=== PATIENT | female | born 1955 | race Caucasian/White ===

== ENCOUNTER → 2022-12-10 12:11 | Outpatient (CLI) | payer OTHER, SELFPAY ==
[2022-12-10 12:38] LABS: Add Manual Diff / Slide Review NO; Basophils Absolute Auto 0 /uL (0-100); Basophils Percent Auto 0.5 % (0-2); Eosinophils Absolute Auto 100 /uL (0-450); Eosinophils Percent Auto 1.8 % (2-4); Hematocrit 42.9 % (36-46); Hemoglobin 14.4 g/dL (12.0-16.0); Lymphocytes Absolute Auto 2700 /uL (1100-4500); Lymphocytes Percent Auto 37.2 % (25-40); Mean Corpuscular HGB Conc 33.6 % (30-36); Mean Corpuscular Hemoglobin 31.3 PG (26-34); Mean Corpuscular Volume 93.1 fL (80-100); Monocytes Absolute Auto 600 /uL (0-900); Monocytes Percent Auto 7.9 % (3-14); Neutrophils Absolute Auto 3900 /uL (1500-7000); Neutrophils Percent Auto 52.6 % (50-75); Platelet Count 261 X10^3/uL (150-400); Red Blood Cell Count 4.61 X10^6/uL (4.0-5.2); Red Cell Distribution Width 13.3 % (11.6-14.8); White Blood Cell Count 7.3 X10^3/uL (4.5-11.0)
[2022-12-10 12:41] LABS: Appearance Urine UA CLEAR; Bilirubin Urine UA NEGATIVE (NEGATIVE); Color Urine UA YELLOW; Glucose Urine UA NEGATIVE (Negative); Ketones Urine UA NEGATIVE (NEGATIVE); Leukocyte Esterase Urine UA NEGATIVE (NEGATIVE); Nitrite Urine UA NEGATIVE (Negative); Occult Blood Urine UA NEGATIVE (Negative); Protein Urine UA NEGATIVE (Negative); Specific Gravity Urine UA <=1.005 (1.000-1.035); Urobilinogen Urine UA 0.2 E.U./dL (0.2); pH Urine UA 6.5 (4.5-8.0)
[2022-12-10 12:48] LABS: Bacteria Urine Occasional (0-1); Culture Indicated Urine Specimen Cultured; RBC Urine 0-1/HPF (0-5/HPF); Squamous Epithelial Cell Urine 0-1 /HPF (0-5/HPF); WBC Urine None Seen (0-5/HPF)
[2022-12-10 12:50] LABS: Blood Urea Nitrogen 15 mg/dL (7-17); Calcium 10.1 mg/dL (8.4-10.2); Carbon Dioxide 33 mmol/L (22-32); Chloride 102 mmol/L (98-107); Estimated Glomerular Filt Rate > 60 mL/min (>60); Glucose 92 mg/dL (80-110); HEMOLYSIS < 15 (0-50); Potassium 4.3 mmol/L (3.4-5.1); Sodium 140 mmol/L (137-145)
[2022-12-11 07:47] LABS: Labcorp Hemoglobin (Hb) A1c 6.4 % (4.8-5.6)
== END ==
PROVIDERS: PCP Registered Nurse; Referring Provider Orthopaedic Surgery; Visit Provider Orthopaedic Surgery
DX: Z01.818 Encounter for other preprocedural examination (principal); Z01.812 Encounter for preprocedural laboratory examination; R73.9 Hyperglycemia, unspecified; N39.0 Urinary tract infection, site not specified
CPT/HCPCS: 36415; 80048; 81001; 83036; 85025; 87086; 93005

== ENCOUNTER 2023-01-24 08:28 | Day surgery (SDC) | payer OTHER, SELFPAY ==
[2023-01-16 08:49] VITALS: BMI 37.8
[2023-01-24] VITALS (9 sets, daily range): BP systolic 91–137; BP diastolic 52–79; PULSE 61–81; RESP 10–18; TEMP 35.9–36.6; O2SAT 93–98; BMI 37.8
--- NOTE | 2023-01-24 06:00 | DI.RAD.S_ITS ---
PROCEDURE: XR PELVIS 1-2V INDICATIONS: inner op pelvis. TECHNIQUE: Intra-operative view of the pelvis and hip acquired. COMPARISON: None. FINDINGS: Bones: Intraoperative devices prior to placement of arthroplasty trial prostheses are in expected positions. No fractures or suspicious bony lesions. Soft tissues: Overlying surgical retractors are present, along with other intraoperative changes. IMPRESSION: Expected arthroplasty trial prosthesis appearance. Dictated by: Brian Bailey M.D. on 01/24/2023 at 13:53 Approved by: Brian Bailey M.D. on 01/24/2023 at 13:53
[2023-01-24] MEDS: MELOXICAM 7.5 MG TABLET 15 MG PO (08:54)
[2023-01-24] MEDS: ACETAMINOPHEN 325 MG TABLET 975 MG PO (08:55)
[2023-01-24] MEDS: VANCOMYCIN 1,000 MG/200 ML PIGGYBACK 200 MG IV (09:45)
--- NOTE | 2023-01-24 10:08 | PM.PREOP ---
Pre-operative Note Interval Note History & Physical reviewed/Exam performed by Physician: Yes Changes to H&P: No
--- NOTE | 2023-01-24 10:10 | PM.OP.1 ---
Operative Date/Time/Diagnoses Date of procedure: 01/24/23 Time of procedure: 10:23 Pre-op diagnosis: Severe right hip OA Post-op diagnosis: same Procedure & Clinicians Procedure: Right total hip arthroplasty posterior approach Same procedure as scheduled: Yes Indications: The patient has had progressively worsening right hip pain with radiographic changes consistent with arthritis. Non-operative management has failed and the patient has requested total hip replacement. The risks, benefits and alternatives to surgery were discussed with the patient prior to proceeding. Risks discussed included, but were not limited to, failure to relieve pain, leg length discrepancy, dislocation, stiffness, infection, nerve damage, deep venous thrombosis, pulmonary embolism, stroke, coma, heart attack, permanent paralysis and , as well as the potential need for eventual revision of the prosthetic. Surgeon: Ibis Norman Engine Manager: Michael Paulino Click Yes if Unassisted: Yes Anesthesia Type: General Operative Notes Findings: Severe right hip osteoarthritis, good stability, adequate bone Closure Type: primary Specimen(s): none sent Prosthetic devices, grafts, tissues, transplants, or devices: Norman and Nephew size 50 R3 cup, neutral poly liner, size 9 synergy standard offset, 32 by +0 Oxinium head, one 6.5 mm screw Estimated Blood Loss (mL): 250 Blood products transfused: none Procedure in detail: The patient was seen in the pre-operative area, where the patient identified the right hip as the operative site and this was marked with my initials. The patient received pre-operative antibiotics and was taken to the operating room and placed on the operative table in the left lateral decubitus position after satisfactory anesthesia. A rough and truing machine operator out was performed. The right leg was prepared from the ankle to the iliac crest with ChloroPrep in the usual fashion and draped through sterile drapes. A PA was used throughout the procedure and was critically important for positioning the leg intraoperatively, retracting and allowing adequate hemostasis. The hip was approached through an approximately 20 cm incision centered over the greater trochanter and curving gently posteriorly as it went proximally. This was carried sharply to the fascia nely, which was divided and retracted with a self retaining retractor. The trochanteric bursa was excised with care being taken to avoid the sciatic nerve, which was identified and protected throughout the case. The short external rotators were incised and the capsulomuscular flap was raised and tagged for later repair. The hip was dislocated, and a femoral neck osteotomy performed approximately 15 mm above the lesser trochanter. Retractors were placed around the femur. The canal was opened with a box cutting osteotome, followed by a T handled reamer and a lateralizing reamer. The chili pepper broach was then used, followed by sequential broaching until there was good stability of the broach in the femur. Retractors were placed to expose the acetabulum. The labrum and central soft tissues were removed. Reaming was performed initially going up in 2 mm increments, then 1 mm increments until good bite was obtained with an odd sized reamer. The cup 1 mm larger than the last reamer was then inserted using the appropriate anteversion guides. It was further stabilized with a single screw. A trial neutral liner was placed. The broach was placed in the canal. A trial head and neck were then placed and the hip relocated and checked for leg length and stability. An intraoperative film confirmed the component position and no evidence of fracture. The patient was stable in the position of sleep, of squatting, and could be put through a range of motion with 45 degrees internal rotation without dislocation. At 90 degrees flexion, internal rotation to 70? was possible before dislocation. This was felt to be satisfactory and the appropriate components were opened, and the trials were removed. The acetabular liner was impacted into position. The final stem was then impacted into the prepared femoral canal. A brief Betadine soak was performed while trialing with head options. The hip was meticulously irrigated with normal saline. Finally the femoral head was impacted onto the stem. The acetabulum was cleared of all material and the hip relocated one final time. The capsulomuscular flap was then repaired to the greater trochanter though an awl hole using the tag sutures. The short external rotators were repaired with a nonabsorbable suture. A deep drain was placed and brought out anteriorly. The fascia nely was closed with Vicryl. The subcutaneous layer was closed with barbed sutures and SteriStrips. An Aquacel Ag dressing was applied and the patient was taken to recovery having tolerated the procedure well. Complications: none Post-operative Condition: stable Disposition: Acute Care Plan for aftercare: The patient will be maintained on a standard total hip replacement protocol with weight bearing as tolerated and posterior hip precautions. The patient will receive Aspirin and sequential compression devices for DVT prophylaxis. The patient will be discharged home when safe for the home environment.
[2023-01-24] MEDS: CEFAZOLIN 2 GM/100 ML PREMIX 100 ML IV ×2 (10:45→19:47)
--- NOTE | 2023-01-24 11:13 | SUR.OPER ---
Lateral on padded OR bed. Gel axillary roll. Arms secured on padded armboard with pillow supporting top arm. Padded hip positioner braces x4 - anterior and posterior chest and pelvis. Additional gel pad used anterior pelvis. Gel pad under bottom leg from knee to foot and secured with tape over sheet.
[2023-01-24] MEDS: BUPIVACAINE 0.25% (PF) 60 ML, EPINEPHrine 0.3 MG INJ (11:22)
[2023-01-24] MEDS: TRANEXAMIC ACID 1,000 MG VIAL 2000 MG INJ ×2 (11:30→12:46)
[2023-01-24] MEDS: BUPIVACAINE LIPOSOME 266 MG/20 ML VIAL INJ (12:07)
--- NOTE | 2023-01-24 13:30 | DI.RAD.S_ITS ---
PROCEDURE: XR HIP W PEL IF DONE RT 2V INDICATIONS: POST OP RT HIP TECHNIQUE: 2 view(s) of the hip acquired. COMPARISON: None. FINDINGS: Bones: Patient is status post right hip arthroplasty, with hardware components in expected positions. The hip joint appears congruent. The visualized bony structures appear intact. Soft tissues: Overlying postoperative changes are noted. No suspicious soft tissue densities. IMPRESSION: Expected postoperative appearance of a right hip arthroplasty. Dictated by: Brian Bailey M.D. on 01/24/2023 at 13:54 Approved by: Brian Bailey M.D. on 01/24/2023 at 13:55
--- NOTE | 2023-01-24 15:15 | PT.IIE ---
Current Diagnoses Unilateral primary osteoarthritis, right hip (01/24/23) Surgery Performed Operation Date: 01/24/23 10:45 Actual Procedures p Total Hip Arthroplasty(Right) - Ibis Norman MD Surgical History (Last Updated 01/16/23 @ 09:13 by Viridiana May, RN) History of carpal tunnel surgery of right wrist Hx of arthroscopy of left knee Medical History (Last Updated 01/16/23 @ 09:13 by Viridiana May, RN) Baez's palsy Hearing loss, left HTN (hypertension) Left acoustic neuroma (~2002) Nasal fracture Osteoarthritis Pre-diabetes Physical Therapy Inpatient Evaluation/Re-Eval M1 PT/OT-IP Prior Functional Status Start: 01/24/23 16:08 Freq: NEEDED Status: Active Protocol: Document 01/24/23 15:15 AB (Rec: 01/24/23 16:17 AB [id number]) Medical Review Prior Functional Status Medical History Reviewed Yes Communication able to make needs known Mobility and Gait pt stated that she is modified independent with all mobilities and ambulation using her SPC/walking stick Social History Household Members spouse Living Arrangements House Number of Floors (Floors) One Floor Number of Stairs To Enter/Railing? 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 [employer] M2 PT-IP Current Condition Start: 01/24/23 16:08 Freq: NEEDED Status: Active Protocol: Document 01/24/23 15:15 AB (Rec: 01/24/23 16:17 AB [id number]) Physical Therapy Current Condition Current Condition Evaluation Date 01/24/23 Treatment Diagnosis s/p R ZAK posterior approach; difficulty in walking Onset Date 01/24/23 M3 PT-IP Subjective Start: 01/24/23 16:08 Freq: NEEDED Status: Active Protocol: Document 01/24/23 15:15 AB (Rec: 01/24/23 16:17 AB [id number]) Subjective Physical Therapy Visit Type Type Initial Evaluation Visit Start Time 15:15 Visit Stop Time 15:55 Total Visit Minutes 40 Number of HOME CARE RN Visits 0 Physical Therapy Visit Comments Patient Comments agreeable to do PT Therapy Pain Assessment Pain When Pain Assessed At Rest Pain Present Pain Present Pain Reported Location Right Hip Intensity 5 Scale Used Numeric (0 - 10) Pain Management Techniques Apply Cold,Distraction, Modification of Treatment,Re- positioning M4 PT-IP Mobility and Gait Start: 01/24/23 16:08 Freq: NEEDED Status: Active Protocol: Document 01/24/23 15:15 AB (Rec: 01/24/23 16:17 AB [email or web address]) PT-Bed Mobility Assessment Supine to Sit Supine to Sit Standby Assistance Sit to Supine Sit to Supine Standby Assistance PT-Transfer Assessment Sit to and From Stand Sit to and from Stand Minimal Assistance,1 Person Assistance,Use of Upper Extremities Equipment Transfer Assistive Device Gait Belt,Front Wheeled Walker Orthotic/Prosthetic Devices or Brace: No Comments Mobility Comments educated pt regarding posterior hip precautions. BP in supine: 120/73. pt completed supine to sit towards the L SBA and cues for hip precautions. able to sit on EOB SBA. completed sit to stand min A and cues for hip precautions and pt ambulated in room using fWW min A ~ 40 ft. presents with unsteady antalgic gait. pt requested to go back to bed. completed sit to supine SBA. positioned in bed. call light and table placed within reach. spouse came in to visit pt. caregiver training set up for tomorrow at 10 am. Gait Assessment Gait Gait Assistance Required: Minimum Assistance Distance (Feet) 40 Able to Maintain Weight Bearing Status Yes During Gait Assistive Devices Assistive Device Gait Belt,Front Wheeled Walker Orthotic/Prosthetic Devices or Brace: No Gait Deviations General Gait Pattern Antalgic,Decreased Stride Length,Decreased Feet Clearance Factors Limiting Gait Function Factors Limiting Gait Function Decreased Activity Tolerance, Decreased Strength,Limited Range of Motion,Pain,Poor Balance,Poor Safety Awareness PT-Balance Assessment Sitting Balance and Reactions Static Sitting Balance Ability Normal Dynamic Sitting Balance Ability Good Standing Balance and Reactions Static Standing Balance Ability Fair Dynamic Standing Balance Ability Fair Device Used FWW M5 PT-IP Objective Assessments Start: 01/24/23 16:08 Freq: NEEDED Status: Active Protocol: Document 01/24/23 15:15 AB (Rec: 01/24/23 16:17 AB [id number]) Orientation Orientation/Cognition Level of Alertness Alert Orientation Name,Place,Situation Language Function Ability No Deficits Noted Safety Awareness Decreased Safety Awareness Memory Description Short Term Impaired Gross Range of Motion Lower Extremity ROM Assessment Within Functional Limits Strength Lower Extremity Strength Assessment Right Impaired Hip 3/5 Knee 4-/5 Coordination Assessment Gross Coordination Gross Coordination WNL Sensation Assessment Sensation Gross Sensation WNL Muscle Tone Muscle Tone WNL Yes M6 PT-IP Treatment Start: 01/24/23 16:08 Freq: NEEDED Status: Active Protocol: Document 01/24/23 15:15 AB (Rec: 01/24/23 16:17 AB [id number]) Physical Therapy Treatment Education Education Provided Precautions,Weight Bearing Status,Post-Op Packet,Safety M7 PT-IP Assessment and Plan Start: 01/24/23 16:08 Freq: NEEDED Status: Active Protocol: Document 01/24/23 15:15 AB (Rec: 01/24/23 16:17 AB [email or web address]) PT Summary Assessment and Plan Potential Rehabilitation Potential Fair Status of Condition at Evaluation Stable Summary Impairments Pain,ROM,Strength,Balance, Coordination,Sensation,Tone, Cognition,Bed Mobility, Transfers,Gait,Activity Tolerance Assessment Summary Pt s/p R ZAK posterior approach POD 0. pt requiring min A with transfers and ambulation using FWW. caregiver training set up for tomorrow at 10 am. pt will likely progress during hospital stay. pt stated that she is set up for outpt PT. will continue to assess progress. Goals Bed Mobility Goal Independent Transfer Goal Independent,Front Wheeled Walker Gait Goal Independent,Front Wheel Walker Gait Distance 200 Other Goals up/down 2 steps using SPC/VERIFICATION REP CGA Days to Meet Goals 5 Frequency of Treatment Frequency Of Treatment Twice a Day Treatment Plan Physical Therapy Treatment Plan Bed Mobility Training,Transfer Training,Gait Training, Therapeutic Exercise,Balance Retraining,Post Op Education, Discharge Planning,Hot or Cold Pack,Neuromuscular Re-ed, Coordination Retraining,Manual Therapy Precautions Posterior Hip Precautions No Hip Flexion > 90 degrees,No Hip Internal Rotation,No Hip Adduction Weight Bearing Status Weight Bearing Status Weight Bear as Tolerated Allowed Weight Bearing Amount (enter % RLE WBAT or #) (%) Recommendations To Nursing Amount of Assist Needed 1 Person Assist Discharge Recommendations PT Discharge Recommendations Home with Assistance, Outpatient PT Transportation Needs at Discharge Private Vehicle
[2023-01-24] MEDS: IBUPROFEN 400 MG TABLET PO ×2 (15:56→20:15)
[2023-01-24] MEDS: ACETAMINOPHEN 325 MG TABLET 650 MG PO (15:57)
[2023-01-24] MEDS: DOCUSATE 100 MG CAPSULE PO (20:15)
[2023-01-24] MEDS: ASPIRIN EC 81 MG TABLET PO (20:15)
[2023-01-24] MEDS: LACTATED RINGERS 1,000 ML 100 ML IV (22:31)
[2023-01-25] VITALS: BP 131/64; PULSE 64; RESP 17; TEMP 35.9; O2SAT 95
[2023-01-25] MEDS: IBUPROFEN 400 MG TABLET PO ×3 (01:46→09:22)
[2023-01-25] MEDS: ACETAMINOPHEN 325 MG TABLET 650 MG PO ×2 (01:47→09:22)
[2023-01-25] MEDS: hydroCHLOROthiazide 25 MG TABLET PO (02:31)
[2023-01-25] MEDS: CEFAZOLIN 2 GM/100 ML PREMIX 100 ML IV (02:32)
[2023-01-25 02:33] VITALS: BP 131/64; PULSE 64
[2023-01-25] MEDS: LOSARTAN 50 MG TABLET 100 MG PO (02:33)
[2023-01-25 04:00] VITALS: BP 112/53; PULSE 58; RESP 16; TEMP 36.7; O2SAT 99
[2023-01-25 06:37] LABS: Hematocrit 34.7 % (36-46); Hemoglobin 11.6 g/dL (12.0-16.0)
--- NOTE | 2023-01-25 06:49 | PM.DS.1 ---
History of Present Illness History of Present Illness Date Patient Seen: 01/25/23 Time Patient Seen: 06:49 Chief complaint: Right ZAK *OPB* Narrative: Operative Date/Time/Diagnoses Date of procedure: 01/24/23 Time of procedure: 10:23 Pre-op diagnosis: Severe right hip OA Post-op diagnosis: same Procedure & Clinicians Procedure: Right total hip arthroplasty posterior approach Same procedure as scheduled: Yes Indications: The patient has had progressively worsening right hip pain with radiographic changes consistent with arthritis. Non-operative management has failed and the patient has requested total hip replacement. The risks, benefits and alternatives to surgery were discussed with the patient prior to proceeding. Risks discussed included, but were not limited to, failure to relieve pain, leg length discrepancy, dislocation, stiffness, infection, nerve damage, deep venous thrombosis, pulmonary embolism, stroke, coma, heart attack, permanent paralysis and , as well as the potential need for eventual revision of the prosthetic. Surgeon: Ibis Norman Kiss Setter Hand: Michael Paulino Click Yes if Unassisted: Yes Anesthesia Type: General Operative Notes Findings: Severe right hip osteoarthritis, good stability, adequate bone Closure Type: primary Specimen(s): none sent Prosthetic devices, grafts, tissues, transplants, or devices: Norman and Nephew size 50 R3 cup, neutral poly liner, size 9 synergy standard offset, 32 by +0 Oxinium head, one 6.5 mm screw Estimated Blood Loss (mL): 250 Blood products transfused: none Discharge Providers Provider Discharge Date: 01/25/23 Primary care physician: ADRIANA Kelly Consults: 01/16/23 09:43 Consult to Anesthesiology Routine Comment: Consulting Provider: Anesthesiologist Reason for consultation: PAC courtesy re: Abnormal pre-op EKG 01/24/23 06:00 Consult to Anesthesiology Routine Comment: Consulting Provider: Anesthesiologist Reason for consultation: Regional block for post operative pain control 01/24/23 13:56 Consult to Discharge Planning Routine Comment: Consult to Occupational Therapy Evaluate & Treat Comment: Physician Instructions: Evaluate and treat Consult to Physical Therapy Evaluate & Treat Comment: Physician Instructions: post op ZAK protocol Discharge provider: Clara Soliman PA-C Summary Hospital Course Discharge Diagnosis: Right hip osteoarthritis, s/p right total hip arthroplasty Hospital Course: Ms Vera's hospital course was unremarkable. On the morning of POD# 1, she was feeling well and wanted to go home. Her pain was well-controlled with non-narcotic medication and she was eating and voiding without difficulty. She was evaluated by PT and they felt she was safe for homegoing. Exam Vital Signs (past 8 hours): - 01/25/23 00:00 01/25/23 02:33 01/25/23 04:00 Temperature 96.7 F L 98.0 F Pulse Rate 64 64 58 L Respiratory Rate 17 16 Blood Pressure 131/64 131/64 112/53 L Pulse Oximetry 95 99 Oxygen Delivery Method Room Air Oxygen Flow Rate 0 Narrative Exam Narrative: 5/5 strength in hip flexors, quadriceps, hamstrings, DF, PF, EHL on right. Sensation to light touch intact throughout RLE. Calf soft, compressible, nontender and without palpable cords or masses. EVAN dressing functioning, CDI. Objective Labs 01/25/23 05:02 Labs: Laboratory Results - last 24 hr 01/25/23 05:02 Hgb 11.6 L Hct 34.7 L PFSH Medical History (Updated 01/16/23 @ 09:13 by Viridiana May RN) Baez's palsy Hearing loss, left HTN (hypertension) Left acoustic neuroma (~2002) Nasal fracture Osteoarthritis Pre-diabetes Surgical History (Updated 01/16/23 @ 09:13 by Viridiana May RN) History of carpal tunnel surgery of right wrist Hx of arthroscopy of left knee Social History household members: spouse Smoking Status: Never smoker alcohol intake: current Discharge Assessment & Plan Assessment and Plan Assessment: Right hip osteoarthritis, s/p right total hip arthroplasty Plan of Treatment: Discharge home, multimodal pain control, ASA BID x 6 weeks for VTE prophylaxis, outpt PT, f/u in office in 2 weeks as scheduled. Discharge Plan Discharge Plan Patient Disposition: Home Discharge orders & Medications Discharge Orders: Discharge (Order); Ordered 01/25/23 Ordered By: Clara Soliman Prescriptions: Continued losartan-hydrochlorothiazide 100-25 mg Tablet 1 tab PO DAILY metformin 500 mg Tablet Extended Release 24 Hr 500 mg PO DAILY meloxicam 7.5 mg Tablet 7.5 mg PO BID PRN (Reason: Pain) tizanidine 4 mg Capsule 4 mg PO BID PRN (Reason: Spasms) Follow up/Referrals: Rigoberto Bird ARNP [Primary Care Provider] - Ibis Norman MD [Physician] - As previously scheduled (Follow up with Dr Norman on 02/03/2023 @ 11:00 am at [facility] office in [place].) Diet/Activity/Treatments Diet: Diet as Tolerated Activity: Weightbearing as tolerated to right leg. Posterior hip precautions. Cold/Heat Therapy: Ice to hip as needed for pain. Skin/Wound/Dressing Care Report to your healthcare provider any signs of infection, such as:: chills, fever, night sweats, unusual drainage and unusual redness Dressing: May shower with EVAN dressing in place. Batteries will in 5-7 days, at which point you can disconnect or cut off the battery pack and dispose of it. Leave dressing on until follow up in office. Visit Report/Discharge Packet Instructions: DI for Hip Replacement Stand Alone Forms: Patient Portal/API, Surgery Discharge Discharge Data Primary Care Provider: Rigoberto Bird Attending Provider: Ibis Norman Quality VTE Deep Vein Thrombosis/Pulmonary Embolism Present on Admission: No
[2023-01-25 08:55] VITALS: BP 122/61; PULSE 60; RESP 16; TEMP 36.4; O2SAT 95
[2023-01-25] MEDS: METFORMIN XR 500 MG TABLET PO (09:21)
[2023-01-25] MEDS: ASPIRIN EC 81 MG TABLET PO (09:21)
[2023-01-25] MEDS: DOCUSATE 100 MG CAPSULE PO (09:22)
--- NOTE | 2023-01-25 09:38 | OT.IP.EVAL ---
Current Diagnoses Unilateral primary osteoarthritis, right hip (01/24/23) Surgery Performed Operation Date: 01/24/23 10:45 Actual Procedures p Total Hip Arthroplasty(Right) - Ibis Norman MD Past Medical History (Last Updated 01/16/23 @ 09:13 by Viridiana May, RN) Baez's palsy Hearing loss, left HTN (hypertension) Left acoustic neuroma (~2002) Nasal fracture Osteoarthritis Pre-diabetes Surgical History (Last Updated 01/16/23 @ 09:13 by Viridiana May, RN) History of carpal tunnel surgery of right wrist Hx of arthroscopy of left knee Occupational Therapy Inpatient Evaluation/Re-Eval M1 PT/OT-IP Prior Functional Status Start: 01/24/23 16:08 Freq: NEEDED Status: Discharge Protocol: Document 01/24/23 15:15 AB (Rec: 01/24/23 16:17 AB [id number]) Medical Review Prior Functional Status Medical History Reviewed Yes Communication able to make needs known Mobility and Gait pt stated that she is modified independent with all mobilities and ambulation using her SPC/walking stick Social History Household Members spouse Living Arrangements House Number of Floors (Floors) One Floor Number of Stairs To Enter/Railing? 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 Social History Household Members spouse Living Arrangements House Number of Floors (Floors) One Floor Number of Stairs To Enter/Railing? 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 M2 OT-IP Current Condition Start: 01/25/23 10:48 Freq: Status: Active Protocol: Document 01/25/23 09:02 [facility] (Rec: 01/25/23 11:02 [facility] [id number]) Occupational Therapy Current Condition Current Condition Evaluation Date 01/25/23 Treatment Diagnosis s/p R ZAK Diagnosis Onset Date 01/24/23 Post Operative Precautions Posterior Hip Precautions No Hip Flexion > 90 degrees,No Hip Internal Rotation,No Hip Adduction Weight Bearing Status Weight Bearing Status Weight Bear as Tolerated M3 OT- IP Subjective and Pain Start: 01/25/23 10:48 Freq: Status: Active Protocol: Document 01/25/23 09:02 [facility] (Rec: 01/25/23 11:02 [facility] [id number]) OT- Subjective Occupational Therapy Visit Type Type Initial Evaluation Visit Start Time 09:02 Visit Stop Time 09:38 Total Visit Minutes 36 Occupational Therapy Visit Comments Patient Comments Pt wanting to shower. Patient/Caregiver Goals To go home. OT Pain Assessment Pain When Pain Assessed At Rest Pain Present Pain Present Pain Reported Location Right Hip Intensity 2 Scale Used Numeric (0 - 10) M4 OT- IP ADL's Start: 01/25/23 10:48 Freq: Status: Active Protocol: Document 01/25/23 09:02 [facility] (Rec: 01/25/23 11:02 [facility] [id number]) OT ADL-Grooming General Evaluation Grooming Ability Independent Areas Needing Assistance Retrieving/Set-up of Grooming Items OT ADL-Oral Care General Eval Oral Care Ability Independent OT ADL-Dressing General Eval Upper Body Dressing Ability Independent Lower Body Dressing Ability Minimal Assistance,Moderate Assistance Areas Needing Assistance Pants/Shorts,Socks Assistive Devices Dressing Assistive Devices Blue Prints Trimmer,Sock Aid Comments OT Dressing Comments Pt able to practice with hand driller to troy her pants. Pt shown sock aid and but pt states to have her assist. Educated pt to troy her affected leg first and take it out last. OT ADL-Toileting General Evaluation Toileting Ability Standby Assistance OT ADL-Bathing Bathing Type Bathing Type Shower General Evaluation Bathing Ability Minimal Assistance Areas Needing Assistance Wash/Dry Back,Wash/Dry Lower Extremities Comments OT Bathing Comments Suggested pt get a tub bench for home use and also get long handled sponge to assist to be able to wash her feet. Pt states her to assist. M5 OT- IP IADL's Start: 01/25/23 10:48 Freq: Status: Active Protocol: Document 01/25/23 09:02 [facility] (Rec: 01/25/23 11:02 [facility] [id number]) OT-Instrumental Activities of Daily Living Home Safety Awareness Awareness of Need for Assistance at Home Good Awareness Ability to Problem Solve Emergency Able to Problem Solve Situations M6 OT- IP Functional Cognition Start: 01/25/23 10:48 Freq: Status: Active Protocol: Document 01/25/23 09:02 [facility] (Rec: 01/25/23 11:02 [facility] [id number]) Cognitive Factors Limiting Selfcare Function Cognitive Ability Level of Alertness Alert Patient Orientation Name,Place,Situation Attention Span Ability Capable of Focused Attention, Capable of Sustained Attention Ability to Follow Commands Able to Follow One Step Commands Safety Awareness Decreased Ability to Apply Precautions Cognitive Comments Cognitive Assessment Comments Pt needing reminders not to lean too far forwards during dressing and showering needs. Also encouraging pt to use LB dressing equipment to ensure that she is following her precautions. M7 OT- IP Mobility and Balance Start: 01/25/23 10:48 Freq: Status: Active Protocol: Document 01/25/23 09:02 [facility] (Rec: 01/25/23 11:02 [facility] [id number]) OT- Bed Mobility Assessment Supine to Sit Supine to Sit Assist Standby Assistance OT-Transfer Assessment Sit to and From Stand Sit to and from Stand Standby Assistance Transfers Transfer Ability Standby Assistance Technique Transfer Destination Bed,Chair,Toilet Transfer Technique Stand Step Pivot Devices Transfer Assistive Devices Gait Belt,Front Wheeled Walker Comments Mobility Comments SBA for for mobility with FWW. Just occasional vc to keep the FWW in front of her by the sink. OT- Balance Assessment Sitting Balance and Reactions Static Sitting Balance Ability Normal Dynamic Sitting Balance Ability Good Standing Balance and Reactions Static Standing Balance Ability Good Dynamic Standing Balance Ability Fair M9 OT- IP Assessment and Plan Start: 01/25/23 10:48 Freq: Status: Active Protocol: Document 01/25/23 09:02 [facility] (Rec: 01/25/23 11:02 [facility] [id number]) OT Summary Assessment and Plan Potential Rehabilitation Potential Good Analytic Complexity at Evaluation Low Summary OT Impairments Pain,Balance,Functional Mobility,Dressing,Toileting, Bathing Progress Towards Goals Progressing Toward Goals Assessment Summary Pt low complexity and doing well and needing occasional vc to follow her hip precautions of no bending past 90 degrees especially during dressing, toileting , and bathing needs. pt tp go home with her to assist with her needs. Goals Dressing Goal Independent Toileting Goal Independent Bathing Goal Standby Assistance Toilet Transfer Goal Independent Shower Transfer Goal Standby Assistance Patient/Caregiver Education Goal Demonstrate Post-Op Precautions Days to Meet Goals 5 Frequency of Treatment Frequency Of Treatment Once a Day Treatment Plan OT Treatment Plan ADL Training,Functional Mobility,Patient/Family Education,Discharge Planning Discharge Recommendations OT Discharge Recommendations Home with Assistance Transportation Needs at Discharge Private Vehicle
--- NOTE | 2023-01-25 10:10 | PT.IPTN ---
Current Diagnoses Unilateral primary osteoarthritis, right hip (01/24/23) Surgery Performed Operation Date: 01/24/23 10:45 Actual Procedures p Total Hip Arthroplasty(Right) - Ibis Norman MD Physical Therapy Treatment Note M2 PT-IP Current Condition Start: 01/24/23 16:08 Freq: NEEDED Status: Discharge Protocol: Document 01/24/23 15:15 AB (Rec: 01/24/23 16:17 AB [id number]) Physical Therapy Current Condition Current Condition Evaluation Date 01/24/23 Treatment Diagnosis s/p R ZAK posterior approach; difficulty in walking Onset Date 01/24/23 M3 PT-IP Subjective Start: 01/24/23 16:08 Freq: NEEDED Status: Discharge Protocol: Document 01/25/23 10:53 TS (Rec: 01/25/23 11:08 TS [id number]) Subjective Physical Therapy Visit Type Type Treatment Note Visit Start Time 10:10 Visit Stop Time 10:26 Total Visit Minutes 16 Notes Caregiver training. Number of SALES ACCOUNT REPRESENTATIVE Visits 1 Physical Therapy Visit Comments Patient Comments Pt found resting in chair, agreeable to PT. Therapy Pain Assessment Pain When Pain Assessed At Rest Pain Present Pain Present Pain Reported Location Right Hip Intensity 2 Scale Used Numeric (0 - 10) Description With Movement Pain Management Techniques Apply Cold,Distraction, Modification of Treatment,Re- positioning M4 PT-IP Mobility and Gait Start: 01/24/23 16:08 Freq: NEEDED Status: Discharge Protocol: Document 01/25/23 10:53 TS (Rec: 01/25/23 11:08 TS [id number]) PT-Transfer Assessment Sit to and From Stand Sit to and from Stand Standby Assistance,1 Person Assistance,Use of Upper Extremities Equipment Transfer Assistive Device Gait Belt,Front Wheeled Walker Orthotic/Prosthetic Devices or Brace: No Comments Mobility Comments Pt found resting in chair, spouse in room for caregiver training, agreeable to PT. Sit to stand x1 SBA with FWW, good carryover of hip precautions. Pt ambulated in hallway with emerging step thru gait ~400' SBA, no buckling or LOB. She performed stairs x6 with SPC CGA, provided education on proper use and placement of cane. Pt back in room, stand to sit in chair SBA with FWW. Pt was left in chair preparing for d/ c home. Gait Assessment Gait Gait Assistance Required: Standby Assistance Distance (Feet) 400 Able to Maintain Weight Bearing Status Yes During Gait Assistive Devices Assistive Device Gait Belt,Front Wheeled Walker Orthotic/Prosthetic Devices or Brace: No Gait Deviations General Gait Pattern Antalgic Factors Limiting Gait Function Factors Limiting Gait Function Decreased Strength,Limited Range of Motion,Pain Comments Gait Comments See mobility comments. Stair Climbing Assessment Evaluation Level of Assist On Stairs Contact Guard Assistance Devices Stair Climbing Assistive Devices Straight Cane Technique/Endurance Stair Climbing Direction Ascend and Descend Stair Climbing Technique Step to Step Number of Steps Climbed 6 PT-Balance Assessment Sitting Balance and Reactions Static Sitting Balance Ability Normal Dynamic Sitting Balance Ability Good Standing Balance and Reactions Static Standing Balance Ability Good Dynamic Standing Balance Ability Fair Device Used FWW M5 PT-IP Objective Assessments Start: 01/24/23 16:08 Freq: NEEDED Status: Discharge Protocol: Document 01/24/23 15:15 AB (Rec: 01/24/23 16:17 AB [id number]) Orientation Orientation/Cognition Level of Alertness Alert Orientation Name,Place,Situation Language Function Ability No Deficits Noted Safety Awareness Decreased Safety Awareness Memory Description Short Term Impaired Gross Range of Motion Lower Extremity ROM Assessment Within Functional Limits Strength Lower Extremity Strength Assessment Right Impaired Hip 3/5 Knee 4-/5 Coordination Assessment Gross Coordination Gross Coordination WNL Sensation Assessment Sensation Gross Sensation WNL Muscle Tone Muscle Tone WNL Yes M6 PT-IP Treatment Start: 01/24/23 16:08 Freq: NEEDED Status: Discharge Protocol: Document 01/25/23 10:53 TS (Rec: 01/25/23 11:08 [id number]) Physical Therapy Treatment Education Education Provided Precautions,Weight Bearing Status,Post-Op Packet,Safety Other Treatments Other Treatment Performed Pt recalled 3/3 hip precautions. Educated pt on use of SPC with stairs. M7 PT-IP Assessment and Plan Start: 01/24/23 16:08 Freq: NEEDED Status: Discharge Protocol: Document 01/25/23 10:53 TS (Rec: 01/25/23 11:08 TS [id number]) PT Summary Assessment and Plan Potential Rehabilitation Potential Good Summary Impairments Pain,ROM,Strength,Balance, Coordination,Sensation,Tone, Cognition,Bed Mobility, Transfers,Gait,Activity Tolerance Progress Towards Goals Progressing Toward Goals Assessment Summary Pt is progressing well with ehr mobility this session. She progressed her ambulation to ~400' in hallway with FWW, initally step to gait progressed to step thru gait. She performed stairs x6 with SPC, required cues for proper use of cane and sequencing of steps. PT is recommending return home with assist from spouse. Goals Bed Mobility Goal Independent Transfer Goal Independent,Front Wheeled Walker Gait Goal Independent,Front Wheel Walker Gait Distance 200 Other Goals up/down 2 steps using SPC/TUNNEL DRIER OPERATOR CGA Days to Meet Goals 5 Frequency of Treatment Frequency Of Treatment Twice a Day Treatment Plan Physical Therapy Treatment Plan Bed Mobility Training,Transfer Training,Gait Training, Therapeutic Exercise,Balance Retraining,Post Op Education, Discharge Planning,Hot or Cold Pack,Neuromuscular Re-ed, Coordination Retraining,Manual Therapy Precautions Posterior Hip Precautions No Hip Flexion > 90 degrees,No Hip Internal Rotation,No Hip Adduction Weight Bearing Status Weight Bearing Status Weight Bear as Tolerated Allowed Weight Bearing Amount (enter % RLE WBAT or #) (%) Recommendations To Nursing Amount of Assist Needed Standby Assistance Discharge Recommendations PT Discharge Recommendations Home with Assistance, Outpatient PT Transportation Needs at Discharge Private Vehicle
--- NOTE | 2023-01-25 11:33 | CM.DANOTE ---
DCP: Case received, EMR reviewed and met with patient. Introduced self and role. Was able to obtain information regarding patient's baseline activity level prior to her surgery. DCP assessment completed with information currently available. Patient came to the hospital via private vehicle for a surgical procedure. Patient had right total hip arthroplasty posterior approach. Patient has history of severe right hip osteoarthritis. Met with patient in her room. She is alert and oriented, was sitting up in her chair. Confirmed that she [place] on [address] with spouse, Virgilio. She is independent at baseline, does have a cane for home use. there are a couple of stairs to get into the home, none in the home. She is set up with outpatient P.T. P: Patient is discharging home today, she has worked with P.T, spouse will pick her up. Mariajose Beavers RN/Portuguese Tutor Discharge Planning/Care Management CM Discharge Assessment Start: 01/25/23 11:31 Freq: Status: Active Protocol: Document 01/25/23 11:31 (Rec: 01/25/23 11:33 [id number]) Discharge Planning Assessment Assigned Art Department Head Mariajose Beavers RN/Portuguese Tutor Advance Directives? No History Provided By Patient,Medical Record Prior Living Arrangements House Household Members spouse Type of transporation used prior to Drives own vehicle admit Independent with ADL's Yes Is patient alert and oriented? Yes Caregiver for Another No DME Already Rented / Owned Cane Patient/Family Preference OP PT Therapy Barriers to Discharge No Discharge Plan Home Transportation Arrangement Spouse Referrals Initiated None needed Whiteboard Updated in Patient Room with Yes name and ext. # of Art Department Head Review Status In Process Next Review Type Continued Stay Review Pre-Anesthesia Assessment Start: 01/16/23 08:49 Freq: Status: Complete Protocol: Document 01/16/23 08:49 CAB (Rec: 01/16/23 09:43 CAB [id number]) Pre-Anesthesia Assessment Preferred Name Anahi Patient Information Reviewed Via Phone Assessment Assessment Completed With Patient Diagnostic Results BMP/CMP,CBC,EKG,Urinalysis Comment Labs/EKG @ 12/10/22 Primary Care Provider Rigoberto Bird Seen Specialist in Last 12 Months Yes Specialist Seen Orthopedist Primary Language Greenlandic Advisor Advocate [employer] Founder Required No Height 5 ft 4 in Weight 220 lb Body Mass Index (BMI) 37.8 Hearing Ability Hearing Impaired Visual Assist None Dentition Type Teeth, Natural Present,Teeth, Missing Barriers to Learning Auditory Hx Anesthesia Reactions No Hx Family Anesthesia Reaction No Hx Malignant Hyperthermia No Hx Blood Transfusions No Anesthesia Review Requested Yes: PAC courtesy re: Abnormal pre-op EKG Batching Operator No alcohol intake current alcohol intake frequency holidays/special occasions only Smoking Status Never smoker Substance Use Type marijuana Comment Pt advised not to smoke marijuana 24 hours prior to surgery Pain Present Pain Reported Musculoskeletal Symptoms Abnormal Gait,Back Pain, Difficulty Walking,Joint Pain History of Falling (Recent or History of No ) Patient is completely paralyzed or No completely immobile Mental Status Oriented to own ability Comment Walking stick Is patient on oxygen? No Does patient have CURRAN/SOB No Hx Sleep Apnea No Currently Taking a Beta Huong No Can You Climb a Flight of Stairs Without No: Pt relates too painful SOB Hx Chest Pain No Hx SOB No Hx Syncope or Dizziness No Anti-Coagulant Therapy No Has a Supervisor Commissary Production No Cardiac Testing No Hx Pacemaker/ICD No Pacemaker Rep Required? No Diet Type At Home Regular Dysphagia No Bladder Pattern Frequency,Incontinent,Urgency Urinary Catheter Present No Hx Urinary Self Catheterization No Diabetes No HgbA1C 6.4 Date 12/10/22 Patient No Lactating No Hx Drug Resistant Organism No Presence of External or Internal Medical No Devices Have you had any close contact with No someone diagnosed with COVID-19? Received a COVID vaccine? Yes Received all doses? Yes Marital Status Lives With spouse Current Living Arrangements House Number of Floors (Floors) One Floor Number of Stairs To Enter/Railing? 2 Support System Spouse Does the Patient Have Assistance After Yes Surgery Patient Discharge Plan Description Return Home Comment Pt advised overnight length of stay per surgeon Feels Safe in Current Environment Yes Been Physically Hurt or Threatened By a No Person in Current Environment Do you have thoughts of harming yourself None or others? Are you currently considering suicide? No Do you have a plan to hurt yourself or No Plan others? Do You Have Any Spiritual Beliefs That No May Affect Your HC Choices? Do You Have Any Cultural Practices That No May Affect Your HC Choices? Who Can We Speak to About Patient's Care Family, friends Identifying Code for Release of Patient Declines to issue Information Health Care Proxy/Next of Kin Virgilio () Health Care Proxy Emergency Contact Name Virgilio () Emergency Contact Advance Directives? No Power of Currency Exchange Specialist No PAC Instructions Diabetes instructions,Do not shave/clip surgical site, Durable medical equipment, Medications to take/avoid, Nasal antibiotic,No ETOH/ petroleum product on skin DOS, NPO,Post-op transportation,Pre -surgical wash,Sensory aids, Sturdy shoes/comfortable clothes,Do not bring valuables and remove jewelry
== END 2023-01-25 10:43 | disposition home or self-care (01) ==
LOC: OR 08:29 → AC 08:31
PROVIDERS: PCP Registered Nurse; Referring Provider Physical Medicine & Rehabilitation; Visit Provider Orthopaedic Surgery
PROC: 0SR90JZ Replacement of Right Hip Joint with Synthetic Substitute, Open Approach (ICD-10-PCS; CPT 27130; principal; 2023-01-24 10:45)
DX: M16.11 Unilateral primary osteoarthritis, right hip (principal); I10 Essential (primary) hypertension; R73.03 Prediabetes; Z79.84 Long term (current) use of oral hypoglycemic drugs
CPT/HCPCS: 27130; 36415; 72170; 73502; 85014; 85018; 97116; 97162; 97165; 97530; 97535; C1776; C9290; J0171; J0690; J1100; J2250; J2405; J2704; J3010

== ENCOUNTER 2023-02-05 09:22 | Day surgery (SDC) | payer OTHER, SELFPAY ==
[2023-01-24 13:53] VITALS: BMI 37.8
[2023-02-05 09:31] VITALS: BP 156/88; PULSE 73; RESP 20; TEMP 36.1; O2SAT 98; BMI 38.7
--- NOTE | 2023-02-05 10:13 | PC.NURSE ---
Dr Norman in ED to see patient and redress her Hip incision.
--- NOTE | 2023-02-05 10:54 | ED.WOUNDLAC ---
HPI - Wound/Laceration General Chief Complaint: Wound/Laceration Stated Complaint: open wound, sent by Dr. Norman Time Seen by Provider: 02/05/23 10:21 Source: patient Mode of arrival: Family Vehicle History of Present Illness HPI narrative: Patient is a 67-year-old female history hypertension postop right total hip arthroplasty 01/24/2023 presents today with wound dehiscence and drainage. She had briana removed 3 days ago in the office last night she felt significant amount of fluid and drainage come out of the wound. Incision itself is not erythematous or warm. Patient says she is been doing really well she is been ambulating without any difficulty going to physical therapy she is not had any fever or chills. She has no calf pain no chest pain or shortness of breath. Dr. Norman has notified me that patient was coming she is actually already been into see the patient and patient is going to the OR for a washout. Related Data Home Medications Medication Instructions Recorded Confirmed losartan 100 1 tab PO DAILY 01/16/23 02/05/23 mg-hydrochlorothiazide 25 mg tablet meloxicam 7.5 mg tablet 7.5 mg PO BID PRN Pain 01/16/23 02/05/23 metformin 500 mg tablet,extended 500 mg PO DAILY 01/16/23 02/05/23 release 24 hr tizanidine 4 mg capsule 4 mg PO BID PRN Spasms 01/24/23 02/05/23 Allergies Allergy/AdvReac Type Severity Reaction Status Date / Time latex Allergy Severe Rash Verified 02/05/23 11:45 Penicillins Allergy Intermediate Rash Verified 02/05/23 11:45 Sulfa (Sulfonamide AdvReac I can't Verified 02/05/23 11:45 Antibiotics) remember, I was told not to take it Review of Systems Review of Systems ROS Unobtainable: All systems reviewed & are unremarkable except as noted in HPI and below Patient History Medical History Baez's palsy Hearing loss, left HTN (hypertension) Left acoustic neuroma (~2002) Nasal fracture Osteoarthritis Pre-diabetes Surgical History History of carpal tunnel surgery of right wrist Hx of arthroscopy of left knee Social History household members: spouse Smoking Status: Never smoker alcohol intake: current Smoking Status: Never smoker alcohol intake frequency: holidays/special occasions only Substance Use Type: marijuana Exam Initial Vital Signs Initial Vital Signs: Vital Signs Temperature 96.9 F L 02/05/23 09:31 Pulse Rate 73 02/05/23 09:31 Respiratory Rate 20 02/05/23 09:31 Blood Pressure 156/88 H 02/05/23 09:31 Pulse Oximetry 98 02/05/23 09:31 Oxygen Delivery Method Room Air 02/05/23 09:31 GENERAL: Alert pleasant 67-year-old female no acute distress HEENT: Head atraumatic,EOMI, pupils reactive, face symmetric, moist mucous membranes CARDIOVASCULAR: Regular rate and rhythm without murmurs, rubs or gallops. RESPIRATORY: Breath sounds equal bilaterally, no wheezes rales or rhonchi. ABDOMEN: Soft, nontender. Normoactive bowel sounds all 4 quadrants. No guarding or rebound. EXTREMITIES: Normal range of motion, no clubbing or edema. Neurovascularly intact. Calf is soft no significant pain or swelling distal pedal pulse intact NEUROLOGICAL: Alert and oriented x4. SKIN: Right hip incision site non erythematous 1 small dehiscence inferiorly draining no tenderness to touch Course Orders Ordered: ED Orders 02/05/23 11:06 CBC Auto Diff [Complete Blood Count AUTO DIFF] Stat CMP [Comprehensive Metabolic Panel] Stat CRP [C-Reactive Protein Quant] Stat ESR [Erythrocyte Sedimentation Rate] Stat Discontinued Medications Acetaminophen (Acetaminophen 325 Mg Tablet) 650 mg PO PACUNOW PRN PRN Reason: Pain, Mild (1-3) Last Admin: 02/05/23 14:32 Dose: 650 mg Documented By: CG Bupivacaine Liposome (Bupivacaine Liposome 266 Mg/20 Ml Vial) 266 mg INJ INTRA-OP ONE Stop: 02/05/23 12:42 Last Admin: 02/05/23 13:38 Dose: 266 mg Documented By: MAB Bupivacaine HCl 60 ml/ (Epinephrine HCl 0.3 mg) 0 ml INJ INTRA-OP ONE Stop: 02/05/23 12:42 Last Admin: 02/05/23 13:39 Dose: 60 ml Documented By: SAS Sodium Chloride 250 ml/ (Povidone Iodine 1 applic) 0 ml IRR NOW ONE Stop: 02/05/23 12:42 Hydromorphone HCl (Hydromorphone 2 Mg Inj) 0 mg IV Q5M PRN PRN Reason: Pain, Moderate (4-6) Hydromorphone HCl (Hydromorphone 2 Mg Inj) 0 mg IV Q5MIN PRN PRN Reason: Pain, Mild (1-3) Lactated Ringer's (Lactated Ringers) 1,000 mls @ 42 mls/hr IV CONT WOODY Last Infusion: 02/05/23 14:36 Dose: 0 mls/hr Documented By: Admin: 02/05/23 11:47 Dose: 42 mls/hr Documented By: YVONNE Lactated Ringer's (Lactated Ringers) 1,000 mls @ 42 mls/hr IV CONT WOODY Cefazolin Sodium/Dextrose (Ancef) 100 mls @ 200 mls/hr IV NOW ONE Stop: 02/05/23 13:10 Last Infusion: 02/05/23 13:23 Dose: 0 mls/hr Documented By: Admin: 02/05/23 13:12 Dose: 200 mls/hr Documented By: KAE Vancomycin HCl (Vancomycin) 1,000 mg in 200 mls @ 200 mls/hr IV NOW ONE Stop: 02/05/23 13:40 Last Infusion: 02/05/23 13:20 Dose: 200 mls/hr Documented By: Admin: 02/05/23 13:12 Dose: 200 mls/hr Documented By: ALIN Ondansetron HCl (Ondansetron 4 Mg/2 Ml Inj) 4 mg IV NOW PRN PRN Reason: Nausea And Vomiting Last Admin: 02/05/23 14:32 Dose: 4 mg Documented By: YVONNE Oxycodone HCl (Oxycodone Ir 5 Mg Tablet) 5 mg PO PACUNOW PRN PRN Reason: Mild or moderate pain Last Admin: 02/05/23 14:32 Dose: 5 mg Documented By: YVONNE Tranexamic Acid (Tranexamic Acid 1,000 Mg Vial) 1,000 mg INJ INTRA-OP PRN PRN Reason: Bleeding Last Admin: 02/05/23 14:03 Dose: 1,000 mg Documented By: Admin: 02/05/23 14:02 Dose: 1,000 mg Documented By: ALIN Vancomycin HCl (Vancomycin 1,000 Mg Vial) 1,000 mg TOP NOW ONE Stop: 02/05/23 13:41 Last Admin: 02/05/23 13:40 Dose: 1,000 mg Documented By: DULCE MARIA Vital Signs Vital signs: Vital Signs - 8 hr 02/05/23 09:31 Temperature 96.9 F L Pulse Rate 73 Respiratory Rate 20 Blood Pressure 156/88 H Pulse Oximetry 98 Oxygen Delivery Method Room Air MDM - Wound/Laceration Lab Data 02/05/23 11:06 02/05/23 11:06 Labs: Lab Results 02/05/23 02/05/23 Range/Units 11:06 11:06 WBC 7.1 (4.5-11.0) X10^3/uL RBC 3.91 L (4.0-5.2) X10^6/uL Hgb 12.2 (12.0-16.0) g/dL Hct 36.5 (36-46) % MCV 93.5 (80-100) fL MCH 31.3 (26-34) PG MCHC 33.5 (30-36) % RDW 13.7 (11.6-14.8) % Plt Count 314 (150-400) X10^3/uL Neut % (Auto) 66.1 (50-75) % Lymph % (Auto) 26.9 (25-40) % [place] % (Auto) 6.2 (3-14) % Eos % (Auto) 0.3 L (2-4) % Baso % (Auto) 0.5 (0-2) % Neut # (Auto) 4700 (9666-1793) /uL Lymph # (Auto) 1900 (2877-8676) /uL [place] # (Auto) 400 (0-900) /uL Eos # (Auto) 0 (0-450) /uL Baso # (Auto) 0 (0-100) /uL ESR 31 H (0-20) MM/HR Sodium 139 (137-145) mmol/L Potassium 3.5 (3.4-5.1) mmol/L Chloride 100 (98-107) mmol/L Carbon Dioxide 33 H (22-32) mmol/L BUN 16 (7-17) mg/dL Creatinine 0.74 (0.52-1.04) mg/dL Estimated GFR > 60 (>60) mL/min BUN/Creatinine Ratio 21.6 (6-22) Glucose 119 H (80-110) mg/dL Calcium 9.2 (8.4-10.2) mg/dL Total Bilirubin 0.5 (0.2-1.3) mg/dL AST 45 H (14-36) IU/L ALT 68 H (<35) IU/L Alkaline Phosphatase 92 (38-126) U/L C-Reactive Protein 1.8 H (<1.0) mg/dL Total Protein 7.5 (6.3-8.2) g/dL Albumin 4.2 (3.5-5.0) g/dL Globulin 3.3 (1.7-4.1) g/dL Albumin/Globulin Ratio 1.3 (1.0-2.8) MDM Narrative Medical decision making narrative: Patient is 67-year-old female who presents with postop wound dehiscence. There is some drainage no obvious erythema. Blood work is overall reassuring without significant leukocytosis. ESR CRP are elevated. ESR is [address] Norman was in ED and actually saw patient even before I did and decided to take patient to OR for a washout. Discharge Plan Departure Patient Disposition: Admitted As Inpatient Clinical Impression: Postoperative wound dehiscence Admit Date/Time: 02/05/23 11:33 Admit Provider: Ibis Norman
[2023-02-05 11:16] LABS: Add Manual Diff / Slide Review NO; Basophils Absolute Auto 0 /uL (0-100); Basophils Percent Auto 0.5 % (0-2); Eosinophils Absolute Auto 0 /uL (0-450); Eosinophils Percent Auto 0.3 % (2-4); Hematocrit 36.5 % (36-46); Hemoglobin 12.2 g/dL (12.0-16.0); Lymphocytes Absolute Auto 1900 /uL (1100-4500); Lymphocytes Percent Auto 26.9 % (25-40); Mean Corpuscular HGB Conc 33.5 % (30-36); Mean Corpuscular Hemoglobin 31.3 PG (26-34); Mean Corpuscular Volume 93.5 fL (80-100); Monocytes Absolute Auto 400 /uL (0-900); Monocytes Percent Auto 6.2 % (3-14); Neutrophils Absolute Auto 4700 /uL (1500-7000); Neutrophils Percent Auto 66.1 % (50-75); Platelet Count 314 X10^3/uL (150-400); Red Blood Cell Count 3.91 X10^6/uL (4.0-5.2); Red Cell Distribution Width 13.7 % (11.6-14.8); White Blood Cell Count 7.1 X10^3/uL (4.5-11.0)
[2023-02-05 11:43] LABS: Erythrocyte Sedimentation Rate 31 MM/HR (0-20)
[2023-02-05 11:44] LABS: Alanine Aminotransferase 68 IU/L (<35); Albumin 4.2 g/dL (3.5-5.0); Albumin Globulin Ratio 1.3 (1.0-2.8); Alkaline Phosphatase 92 U/L (38-126); Aspartate Aminotransferase 45 IU/L (14-36); BUN Creatinine Ratio 21.6 (6-22); Bilirubin Total 0.5 mg/dL (0.2-1.3); Blood Urea Nitrogen 16 mg/dL (7-17); C-Reactive Protein Quant 1.8 mg/dL (<1.0); Calcium 9.2 mg/dL (8.4-10.2); Carbon Dioxide 33 mmol/L (22-32); Chloride 100 mmol/L (98-107); Estimated Glomerular Filt Rate > 60 mL/min (>60); Globulin 3.3 g/dL (1.7-4.1); Glucose 119 mg/dL (80-110); HEMOLYSIS < 15 (0-50); Potassium 3.5 mmol/L (3.4-5.1); Sodium 139 mmol/L (137-145); Total Protein 7.5 g/dL (6.3-8.2)
[2023-02-05] MEDS: LACTATED RINGERS 1,000 ML 42 ML IV (11:47)
[2023-02-05 11:50] VITALS: BP 149/77; PULSE 57; RESP 16; TEMP 36.3; O2SAT 97; BMI 38.7
--- NOTE | 2023-02-05 12:16 | PM.PREOP ---
Pre-operative Note Interval Note History & Physical reviewed/Exam performed by Physician: Yes Changes to H&P: Yes H&P completed within 30 days and has changed as indicated here:: She was seen in the office last week. Her wound was doing well. Her briana were discontinued. She noted that last night she woke up and had some increased drainage from her wound. She is not had fevers or chills. She really has minimal pain in her hip. There was a copious amount of drainage. Her physical exam she is ambulating well she is afebrile clear cor regular rhythm abdomen benign, her hip shows a about a 2 cm slight opening and wound dehiscence in the inferior aspect of the wound. She has some tiny Steri-Strips in but is slightly gapped. There is a moderate active drainage. Her exam is consistent with a slight wound dehiscence. It does not appear to be actively infected. I have recommended irrigation and debridement and repeat closure. Think she has a hematoma which has started draining. The procedure alternatives risks benefits and complications were discussed in detail.
--- NOTE | 2023-02-05 12:23 | PM.OP.1 ---
Operative Date/Time/Diagnoses Date of procedure: 02/05/23 Time of procedure: 13:00 Pre-op diagnosis: Right hip hematoma after right total hip arthroplasty Post-op diagnosis: same Procedure & Clinicians Procedure: Irrigation and debridement right hip and repeat closure Same procedure as scheduled: Yes Indications: This is a 67-year-old female who is 2 and half weeks status post a right total hip arthroplasty. She was seen recently in seemed to be doing well with a healing wound. Unfortunately she developed increased drainage last night. Her exam did show evidence of a slight wound dehiscence with some active drainage. She is brought to the operating room for irrigation and debridement and probable closure. Surgeon: Ibis Norman Click Yes if Unassisted: Yes Anesthesia Type: General Operative Notes Findings: Moderate right hip hematoma, no evidence of purulence Closure Type: primary Specimen(s): other (Cultures and PCR) Estimated Blood Loss (mL): 100 Blood products transfused: none Procedure in detail: Patient brought the operating room. A time-out was performed. She underwent induction of general anesthesia. She was carefully positioned on the table and prepped and draped in a sterile standard sterile fashion after positioning laterally. Patient's previous surgical incision was opened on the inferior aspect of it there was a small about a 2 cm wound dehiscence. This skin incision was removed to give a clean fresh base. The wound was meticulously irrigated with normal saline. A hematoma was evacuated. The hematoma tracked down to the level of the fascia. There was a failure of the tissue at the fascial level. Several sutures were noted to have pulled through the fascia. Dissection was carried out down to the prosthesis. There was no evidence of purulence but there was some fluid. Culture and sensitivity was sent. The hip was then meticulously irrigated with a pulse lavage. Vancomycin powder was placed deep in the hip down at the level of the prosthesis. The fascia was repaired with interrupted Vicryl. Multiple sutures were placed. The tissue was somewhat friable and tenuous. The hematoma space was then closed with multiple Vicryl stitches. Subcutaneous tissues were closed with dimas stitches in a layered procedure. Evie were placed. The wound was dressed sterilely in a mini dressing. Complications: none Post-operative Condition: stable Disposition: same day surgery Plan for aftercare: Leave evie in for at least 2 weeks. Continue posterior hip precautions. Okay to resume therapy. Patient was anxious to be discharged to home. Cultures were pending but she was noted to be afebrile with a normal white count.
[2023-02-05] MEDS: CEFAZOLIN 2 GM/100 ML PREMIX 100 ML IV (13:12)
[2023-02-05] MEDS: VANCOMYCIN 1,000 MG/200 ML PIGGYBACK 200 MG IV (13:12)
--- NOTE | 2023-02-05 13:14 | SUR.OPER ---
Lateral on a gomez bag, head on pillow, gel axillary roll in place, bottom leg bent with gel pad under knee to foot, upper leg straight and supported with pillows. Upper arm supported by pillows and secured over bottom arm to padded arm board. Safety belt at hip, tape over blanket lower legs.
[2023-02-05] MEDS: BUPIVACAINE LIPOSOME 266 MG/20 ML VIAL INJ (13:38)
[2023-02-05] MEDS: BUPIVACAINE 0.25% (PF) 60 ML, EPINEPHrine 0.3 MG INJ (13:39)
[2023-02-05] MEDS: VANCOMYCIN 1,000 MG VIAL 1000 MG TOP (13:40)
[2023-02-05] MEDS: TRANEXAMIC ACID 1,000 MG VIAL 1000 MG INJ ×2 (14:02→14:03)
[2023-02-05 14:19] VITALS: BP 136/64; PULSE 91; RESP 11; TEMP 36.2; O2SAT 99
[2023-02-05 14:24] VITALS: BP 120/51; PULSE 78; RESP 11; O2SAT 98
[2023-02-05] MEDS: OXYCODONE IR 5 MG TABLET PO (14:32)
[2023-02-05] MEDS: ONDANSETRON 4 MG/2 ML INJ IV (14:32)
[2023-02-05] MEDS: ACETAMINOPHEN 325 MG TABLET 650 MG PO (14:32)
[2023-02-05 14:36] VITALS: BP 131/60; PULSE 72; RESP 11; TEMP 36.2; O2SAT 99
== END 2023-02-05 15:01 | disposition home or self-care (01) ==
LOC: ED 10:39 → AC 11:37 → OR 02-06 07:44
PROVIDERS: Emergency Provider Emergency Medicine; PCP Registered Nurse; Referring Provider Emergency Medicine; Visit Provider Orthopaedic Surgery
PROC: 0J9C3ZZ Drainage of Pelvic Region Subcutaneous Tissue and Fascia, Percutaneous Approach (ICD-10-PCS; CPT 10180; principal; 2023-02-05 12:30)
DX: T81.32XA Disruption of internal operation (surgical) wound, not elsewhere classified, initial encounter (principal); M96.840 Postprocedural hematoma of a musculoskeletal structure following a musculoskeletal system procedure
CPT/HCPCS: 11043; 36415; 80053; 85025; 85651; 86140; 87070; 87075; 87205; 99283; C9290; J0171; J0690; J1100; J2405; J2704; J3010

== ENCOUNTER 2024-02-25 19:04 | Emergency (ER) | payer OTHER, SELFPAY ==
[2023-01-24 13:53] VITALS: BMI 37.8
[2024-02-25] VITALS (21 sets, daily range): BP systolic 108–190; BP diastolic 53–92; PULSE 56–76; RESP 12–30; TEMP 36.6; O2SAT 89–98; BMI 38.9
--- NOTE | 2024-02-25 20:00 | DI.RAD.S_ITS ---
PROCEDURE: XR HIP W PEL IF DONE RT 2V INDICATIONS: leg gave out and heard pop, unable to bear weight TECHNIQUE: AP pelvis and lateral view of the hip acquired. COMPARISON: [facility], CR, XR HIP W PEL IF DONE RT 2V, 01/24/2023, 13:06. FINDINGS: Bones: Patient is status post prior right hip arthroplasty. There is superior and likely posterior dislocation of the right femoral head prosthesis in relation to the acetabular prosthesis. No obvious fracture is identified. Degenerative disc disease throughout lower lumbar spine is seen. Soft tissues: No suspicious soft tissue densities. IMPRESSION: Dislocated right hip prosthesis as described above. No obvious fracture is seen. Dictated by: Kurt Cooper M.D. on 02/25/2024 at 20:20 Approved by: Kurt Cooper M.D. on 02/25/2024 at 20:21
--- NOTE | 2024-02-25 20:23 | ED.LOWEXIN ---
HPI - Extremity Injury (Lower) General Chief Complaint: Extremity Injury, Lower Stated Complaint: rt hip injury Time Seen by Provider: 02/25/24 20:20 Source: patient Mode of arrival: Wheelchair History of Present Illness HPI Narrative: 68-year-old female presents by private vehicle for right hip pain. Patient was stepping off of a boat when she felt a pop and was subsequently unable to bear weight. Patient's limb is shortened and internally rotated. Hip was replaced 01/24/[address] Norman, subsequently complicated by postoperative wound dehiscence. No medications taken prior to arrival. Related Data Home Medications Medication Instructions Recorded Confirmed losartan 100 1 tab PO DAILY 01/16/23 02/05/23 mg-hydrochlorothiazide 25 mg tablet meloxicam 7.5 mg tablet 7.5 mg PO BID PRN Pain 01/16/23 02/05/23 metformin 500 mg tablet,extended 500 mg PO DAILY 01/16/23 02/05/23 release 24 hr tizanidine 4 mg capsule 4 mg PO BID PRN Spasms 01/24/23 02/05/23 Allergies Allergy/AdvReac Type Severity Reaction Status Date / Time latex Allergy Severe Rash Verified 02/05/23 11:45 Penicillins Allergy Intermediate Rash Verified 02/05/23 11:45 Sulfa (Sulfonamide AdvReac I can't Verified 02/05/23 11:45 Antibiotics) remember, I was told not to take it Patient History Medical History Osteoarthritis Pre-diabetes Nasal fracture HTN (hypertension) Hearing loss, left 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 Surgical History Hx of arthroscopy of left knee History of carpal tunnel surgery of right wrist Social History household members: spouse Smoking Status: Never smoker alcohol intake: current Smoking Status: Never smoker alcohol intake frequency: holidays/special occasions only Substance Use Type: marijuana Exam Initial Vital Signs Initial Vital Signs: Vital Signs Temperature 97.8 F 02/25/24 19:46 Pulse Rate 76 02/25/24 19:46 Respiratory Rate 20 02/25/24 19:46 Blood Pressure 190/83 H 02/25/24 19:46 Pulse Oximetry 95 02/25/24 19:46 Oxygen Delivery Method Room Air 02/25/24 19:46 Const: Awake, alert, uncomfortable, in pain Cardiac: regular rate, regular rhythm RESP: unlabored, clear bilaterally GI: Soft, nontender, nondistended, no rebound, no guarding MSK: Right lower extremity shortened, internally rotated, able to wiggle toes Skin: Warm, Dry, intact, no rashes Neuro: AO x3, CN II-XII grossly intact, moves all extremities Procedures Orthopedic Joint Reduction Joint #1: Time Out Performed: Yes Side: right Joint Reduction Location: hip Analgesia: procedural sedation Technique used: traction/counter-traction Post-reduction neuro exam: intact Post-reduction vascular: intact Post Reduction X-Ray Obtained: Yes Post Reduction X-Ray Results: reduced Patient Tolerated Procedure: Well and No complications Procedural Sedation Consent signed: Yes Time out performed: Yes Indication: fracture/dislocation reduction ASA Class: II Mallampati Airway Classification: Class III Time of Last PO Intake: 16:00 Preparation: technical support specialist applied, pulse oximeter, capnometry used, supplemental O2 applied, suction/airway equipment at bedside and IV secured IV Propofol dose (mg): 200 Intraservice time/total sedation time (min): 15 ED Sedation Level: Moderate (Concious) Patient Tolerated Procedure: Well and No complications Complications: none Course Orders Ordered: ED Orders 02/25/24 20:00 XR hip w pel if done RT 2V Stat 02/25/24 20:59 XR hip RT 1V Stat Discontinued Medications Sodium Chloride (Normal Saline 0.9%) 1,000 mls @ 1,000 mls/hr IV BOLUS ONE Stop: 02/25/24 21:19 Last Admin: 02/25/24 20:24 Dose: 1,000 mls/hr Documented By: HIWOT Lorazepam (Lorazepam 2 Mg/Ml Inj) 2 mg IV NOW ONE Stop: 02/25/24 20:31 Last Admin: 02/25/24 20:35 Dose: 2 mg Documented By: HIWOT Morphine Sulfate (Morphine 4 Mg/Ml Inj) 4 mg IV NOW ONE Stop: 02/25/24 20:22 Last Admin: 02/25/24 20:24 Dose: 4 mg Documented By: HIWOT Morphine Sulfate (Morphine 4 Mg/Ml Inj) 4 mg IV NOW ONE Stop: 02/25/24 20:21 Last Admin: 02/25/24 21:35 Dose: Not Given Documented By: TIMA Ondansetron HCl (Ondansetron 4 Mg/2 Ml Inj) 4 mg IV NOW ONE Stop: 02/25/24 20:21 Last Admin: 02/25/24 20:24 Dose: 4 mg Documented By: HIWOT Ondansetron HCl (Ondansetron 4 Mg/2 Ml Inj) 4 mg IV NOW ONE Stop: 02/25/24 20:21 Last Admin: 02/25/24 20:42 Dose: 4 mg Documented By: TIMA Propofol (Propofol 200 Mg/20 Ml Vial) 150 mg IV NOW ONE Stop: 02/25/24 20:21 Last Admin: 02/25/24 21:44 Dose: Not Given Documented By: TIMA Propofol (Propofol 200 Mg/20 Ml Vial) 200 mg 2 mg/kg (200 mg) IV NOW ONE Stop: 02/25/24 21:43 Last Admin: 02/25/24 20:50 Dose: 200 mg Documented By: TIMA Vital Signs Vital signs: Vital Signs - 8 hr 02/25/24 20:30 02/25/24 20:50 02/25/24 20:50 Pulse Rate 73 69 Respiratory Rate 23 Blood Pressure 133/92 H Pulse Oximetry 93 95 Oxygen Delivery Method Oxygen Flow Rate 02/25/24 20:56 02/25/24 20:56 02/25/24 21:00 Pulse Rate 72 66 Respiratory Rate 22 16 Blood Pressure 124/63 Pulse Oximetry 89 L 96 Oxygen Delivery Method Nasal Cannula Oxygen Flow Rate 5 02/25/24 21:00 02/25/24 21:05 02/25/24 21:05 Pulse Rate 68 Respiratory Rate 14 Blood Pressure 123/59 L 136/61 Pulse Oximetry 93 Oxygen Delivery Method Oxygen Flow Rate 3 02/25/24 21:10 02/25/24 21:10 02/25/24 21:10 Pulse Rate 64 64 Respiratory Rate 15 15 Blood Pressure 129/59 L 129/59 L Pulse Oximetry 98 98 Oxygen Delivery Method Room Air Oxygen Flow Rate 02/25/24 21:15 02/25/24 21:15 02/25/24 21:22 Pulse Rate 64 74 Respiratory Rate 22 16 Blood Pressure 126/62 Pulse Oximetry 95 Oxygen Delivery Method Oxygen Flow Rate 02/25/24 21:30 02/25/24 21:30 02/25/24 21:45 Pulse Rate 61 60 Respiratory Rate 15 15 Blood Pressure 126/58 L Pulse Oximetry 93 92 Oxygen Delivery Method Oxygen Flow Rate 02/25/24 21:45 02/25/24 22:00 02/25/24 22:00 Pulse Rate 56 L Respiratory Rate 13 Blood Pressure 126/62 118/60 Pulse Oximetry 94 Oxygen Delivery Method Oxygen Flow Rate 02/25/24 22:15 02/25/24 22:30 02/25/24 22:30 Pulse Rate 56 L Respiratory Rate 12 Blood Pressure 118/61 119/58 L Pulse Oximetry 94 Oxygen Delivery Method Oxygen Flow Rate 02/25/24 22:45 02/25/24 22:45 02/25/24 23:00 Pulse Rate 56 L 64 Respiratory Rate 12 17 Blood Pressure 108/58 L Pulse Oximetry 93 96 Oxygen Delivery Method Room Air Oxygen Flow Rate 02/25/24 23:01 02/25/24 23:01 02/25/24 23:15 Pulse Rate 63 59 L Respiratory Rate 16 18 Blood Pressure 114/53 L Pulse Oximetry 95 95 Oxygen Delivery Method Oxygen Flow Rate 02/25/24 23:15 02/25/24 23:30 02/25/24 23:30 Pulse Rate 57 L Respiratory Rate 22 Blood Pressure 122/57 L 114/65 Pulse Oximetry 95 Oxygen Delivery Method Oxygen Flow Rate 02/25/24 23:45 02/25/24 23:45 Pulse Rate 57 L Respiratory Rate 30 H Blood Pressure 112/57 L Pulse Oximetry 95 Oxygen Delivery Method Room Air Oxygen Flow Rate MDM - Extremity Injury (Lower) Differential Diagnosis Differential diagnosis: Likely acute internal derangement of knee, fracture of femur and fracture of hip Lab Data Labs: Point of Care Testing Test Results Not applicable Imaging Data Extremity x-ray #1: Radiologist's Impression: PROCEDURE: XR HIP W PEL IF DONE RT 2V INDICATIONS: leg gave out and heard pop, unable to bear weight TECHNIQUE: AP pelvis and lateral view of the hip acquired. COMPARISON: [facility], DANIEL, XR HIP W PEL IF DONE RT 2V, 01/24/2023, 13:06. FINDINGS: Bones: Patient is status post prior right hip arthroplasty. There is superior and likely posterior dislocation of the right femoral head prosthesis in relation to the acetabular prosthesis. No obvious fracture is identified. Degenerative disc disease throughout lower lumbar spine is seen. Soft tissues: No suspicious soft tissue densities. IMPRESSION: Dislocated right hip prosthesis as described above. No obvious fracture is seen. Dictated by: Kurt Cooper M.D. on 02/25/2024 at 20:20 Approved by: Kurt Cooper M.D. on 02/25/2024 at 20:21 Extremity x-ray #2: Radiologist's Impression: PROCEDURE: XR HIP RT 1V INDICATIONS: post reduction TECHNIQUE: 2 view(s) of the hip acquired. COMPARISON: [facility], , XR HIP W PEL IF DONE RT 2V, 02/25/2024, 20:02. FINDINGS: Bones: Patient is status post right hip arthroplasty. There is interval reduction of earlier noted right hip prosthesis dislocation with now anatomic right hip alignment. No fracture is seen. Soft tissues: Calcified fibroid in left lower pelvis is seen. IMPRESSION: * Interval reduction of earlier noted right hip prosthesis dislocation with anatomic right hip alignment. No gross fracture is seen. Dictated by: Kurt Cooper M.D. on 02/25/2024 at 21:09 Approved by: Kurt Cooper M.D. on 02/25/2024 at 21:10 [facility] Narrative Medical decision making narrative: Hip dislocation confirmed with x-ray imaging. Neurovascularly intact. Please see procedure note for reduction note. With quite some effort hip was replaced into socket in confirmed with x-ray imaging. Patient has a walker that she uses at home for ambulation assistance. She was placed in a knee immobilizer to help stabilize hip joint. Counseled to follow up with her orthopedic surgeon. Discharge Plan Departure Patient Disposition: Home Clinical Impression: Dislocation, hip closed Qualifiers: Encounter type: initial encounter Laterality: right Qualified Code(s): S73.004A - Unspecified dislocation of right hip, initial encounter Instructions: DI for Hip Dislocation -- Adult Activity Restrictions/Additional Instructions: WEAR THE KNEE IMMOBILIZER TO HELP STABILIZE YOUR HIP JOINT. FOLLOW UP WITH YOUR ORTHOPEDIC SURGEON Prescriptions: No Action losartan-hydrochlorothiazide 100-25 mg Tablet 1 tab PO DAILY metformin 500 mg Tablet Extended Release 24 Hr 500 mg PO DAILY meloxicam 7.5 mg Tablet 7.5 mg PO BID PRN (Reason: Pain) tizanidine 4 mg Capsule 4 mg PO BID PRN (Reason: Spasms) Referrals: Rigoberto Bird ARNP [Primary Care Provider] - Stand Alone Forms: Patient Portal/API
[2024-02-25] MEDS: ONDANSETRON 4 MG/2 ML INJ IV ×2 (20:24→20:42)
[2024-02-25] MEDS: MORPHINE 4 MG/ML INJ IV (20:24)
[2024-02-25] MEDS: SODIUM CHLORIDE 0.9% 1,000 ML 1000 ML IV (20:24)
[2024-02-25] MEDS: LORazepam 2 MG/ML INJ IV (20:35)
[2024-02-25] MEDS: propofoL 200 MG/20 ML VIAL IV (20:50)
--- NOTE | 2024-02-25 20:50 | PC.NURSE ---
hip reduced and xray in to do post reduction
--- NOTE | 2024-02-25 20:59 | DI.RAD.S_ITS ---
PROCEDURE: XR HIP RT 1V INDICATIONS: post reduction TECHNIQUE: 2 view(s) of the hip acquired. COMPARISON: [facility], CR, XR HIP W PEL IF DONE RT 2V, 02/25/2024, 20:02. FINDINGS: Bones: Patient is status post right hip arthroplasty. There is interval reduction of earlier noted right hip prosthesis dislocation with now anatomic right hip alignment. No fracture is seen. Soft tissues: Calcified fibroid in left lower pelvis is seen. IMPRESSION: * Interval reduction of earlier noted right hip prosthesis dislocation with anatomic right hip alignment. No gross fracture is seen. Dictated by: Kurt Cooper M.D. on 02/25/2024 at 21:09 Approved by: Kurt Cooper M.D. on 02/25/2024 at 21:10
== END 2024-02-26 00:32 | disposition home or self-care (01) ==
PROVIDERS: Emergency Provider Emergency Medicine; PCP Registered Nurse
DX: S73.004A Unspecified dislocation of right hip, initial encounter (principal); X58.XXXA Exposure to other specified factors, initial encounter
CPT/HCPCS: 27265; 36415; 73501; 73502; 96374; 96375; 99152; 99284; 99285; J2060; J2270; J2405; J2704

== ENCOUNTER 2024-04-06 11:03 | Emergency (ER) | payer OTHER, SELFPAY ==
[2023-01-24 13:53] VITALS: BMI 37.8
[2024-04-06] VITALS (42 sets, daily range): BP systolic 88–167; BP diastolic 51–80; PULSE 44–60; RESP 14–30; TEMP 36.4; O2SAT 92–100; BMI 38.4
--- NOTE | 2024-04-06 11:15 | DI.RAD.S_ITS ---
PROCEDURE: XR HIP W PEL IF DONE RT 2V INDICATIONS: thinks she dislocated it again TECHNIQUE: AP pelvis with lateral view(s) of the right hip(s). COMPARISON: [facility], CR, XR PELVIS WITH LATERAL HIP RIGHT, 02/29/2024, 10:14. [facility], CR, XR HIP W PEL IF DONE RT 2V, 02/25/2024, 20:02. [facility], CR, XR HIP W PEL IF DONE RT 2V, 01/24/2023, 13:06. FINDINGS: Bones: Right hip arthroplasty. Superior dislocation of the right hip arthroplasty. Pelvic ring appears intact. No suspicious bony lesions. Soft tissues: The visualized bowel gas pattern is normal. Calcifications projecting over the pelvis, possible fibroids. IMPRESSION: Superior dislocation of right hip arthroplasty. Dictated by: Raffy Peguero M.D. on 04/06/2024 at 12:02 Approved by: Raffy Peguero M.D. on 04/06/2024 at 12:03
--- NOTE | 2024-04-06 12:04 | ED.LOWEXIN ---
HPI - Extremity Injury (Lower) General Chief Complaint: Extremity Injury, Lower Stated Complaint: RT HIP INJURY Time Seen by Provider: 04/06/24 12:04 Source: patient Mode of arrival: Wheelchair Limitations: no limitations History of Present Illness HPI Narrative: 69-year-old female history of hypertension, diabetes type 2, prior hip dislocations x2 who presents with concern for hip dislocation. Patient was here in February 2024 for same. Patient had reduction at that time although she states it took 3 tries. Patient had hip replacement approximately a year ago with Dr. Norman locally. Patient states today she was on her knees on the floor and a soft pillow sitting down cleaning the bottom of her bird cage when she leaned forward and felt her hip go out. She denies any other injuries. She and her were able to get her into the car and here to the hospital from [place]. No numbness tingling or weakness in her lower extremity she was normal movement of the foot. She states she took her home medications at 7 and 8:00 a.m. this morning. She has not had anything to eat or drink since. States she takes doxycycline daily, lisinopril and HCT as well as rosuvastatin than r rubella for her diabetes. She states she has had prior hip replacement but denies any other prior surgeries. Allergic to latex and penicillin she did have some nausea with morphine on her last visit. No tobacco, alcohol or recreational drugs. Related Data Home Medications Medication Instructions Recorded Confirmed losartan 100 1 tab PO DAILY 01/16/23 02/05/23 mg-hydrochlorothiazide 25 mg tablet meloxicam 7.5 mg tablet 7.5 mg PO BID PRN Pain 01/16/23 02/05/23 metformin 500 mg tablet,extended 500 mg PO DAILY 01/16/23 02/05/23 release 24 hr tizanidine 4 mg capsule 4 mg PO BID PRN Spasms 01/24/23 02/05/23 Allergies Allergy/AdvReac Type Severity Reaction Status Date / Time latex Allergy Severe Rash Verified 02/05/23 11:45 Penicillins Allergy Intermediate Rash Verified 02/05/23 11:45 Sulfa (Sulfonamide AdvReac I can't Verified 02/05/23 11:45 Antibiotics) remember, I was told not to take it Review of Systems Review of Systems ROS Unobtainable: All systems reviewed & are unremarkable except as noted in HPI and below Patient History Medical History Osteoarthritis Pre-diabetes Nasal fracture HTN (hypertension) Hearing loss, left 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 Surgical History Hx of arthroscopy of left knee History of carpal tunnel surgery of right wrist Social History household members: spouse Smoking Status: Never smoker alcohol intake: current Smoking Status: Never smoker alcohol intake frequency: holidays/special occasions only Substance Use Type: marijuana Exam Narrative Exam Narrative: GENERAL: Alert and oriented x three, female in mild distress HEENT: Head normocephalic, atraumatic, EOMI, pupils reactive, face symmetric, moist mucous membranes NECK: Supple, full range of motion CARDIOVASCULAR: Regular rate and rhythm without murmurs, rubs or gallops. RESPIRATORY: Breath sounds equal bilaterally, no wheezes rales or rhonchi. ABDOMEN: Soft, nontender. Normoactive bowel sounds all 4 quadrants. No guarding or rebound, rigidity, no mass : No CVA tenderness EXTREMITIES: Patient's right lower extremity is shortened and internally rotated, she was 2+ dorsalis pedis bilaterally. Normal dorsiflexion plantar flexion. Sensation throughout. No clubbing or edema. Neurovascularly intact. NEUROLOGICAL: Cranial nerves II through XII grossly intact. Moving all extremities SKIN: Warm, dry, no petechiae, no rashes or lesions. Initial Vital Signs Initial Vital Signs: Vital Signs Temperature 97.5 F L 04/06/24 11:11 Pulse Rate 60 04/06/24 11:11 Respiratory Rate 18 04/06/24 11:11 Blood Pressure 167/79 H 04/06/24 11:11 Pulse Oximetry 96 04/06/24 11:11 Oxygen Delivery Method Room Air 04/06/24 11:11 Procedures Orthopedic Joint Reduction Joint #1: Time Out Performed: Yes Side: right Joint Reduction Location: hip Analgesia: procedural sedation Technique used: traction/counter-traction (Flexion and hip and knee with upward traction w/ internal and improvement with external rotation. ) Post-reduction neuro exam: intact and no change Post-reduction vascular: intact and no change Post Reduction X-Ray Obtained: Yes Post Reduction X-Ray Results: reduced Splint Applied: Yes (Knee immobilizer) Patient Tolerated Procedure: Well Procedural Sedation Consent signed: Yes Time out performed: Yes Indication: fracture/dislocation reduction ASA Class: II Mallampati Airway Classification: Class III Time of Last PO Intake: 08:00 Preparation: hall monitor applied, pulse oximeter, capnometry used, supplemental O2 applied, suction/airway equipment at bedside and IV secured IV Propofol dose (mg): 100 ED Sedation Level: Moderate (Concious) Patient Tolerated Procedure: Well Complications: hypoxia Interventions: Assist by BVM (jaw thrust) and Oxygen applied Course Orders Ordered: Discontinued Medications Sodium Chloride (Normal Saline 0.9%) 1,000 mls @ 150 mls/hr IV CONT WOODY Last Infusion: 04/06/24 14:33 Dose: Infused Documented By: Admin: 04/06/24 12:38 Dose: 150 mls/hr Documented By: RB Morphine Sulfate (Morphine 4 Mg/Ml Inj) 4 mg IV NOW ONE Stop: 04/06/24 12:18 Last Admin: 04/06/24 12:28 Dose: 4 mg Documented By: RB Ondansetron HCl (Ondansetron 4 Mg/2 Ml Inj) 4 mg IV NOW ONE Stop: 04/06/24 12:18 Last Admin: 04/06/24 12:28 Dose: 4 mg Documented By: RB Propofol (Propofol 200 Mg/20 Ml Vial) 200 mg IV NOW ONE Stop: 04/06/24 12:31 Last Admin: 04/06/24 13:00 Dose: 100 mg Documented By: ANAMIKA Vital Signs Vital signs: Vital Signs - 8 hr 04/06/24 11:11 04/06/24 11:27 04/06/24 11:28 Temperature 97.5 F L Pulse Rate 60 54 L 55 L Pulse Rate [Right Dorsalis Pedis] Respiratory Rate 18 17 18 Blood Pressure 167/79 H Pulse Oximetry 96 97 97 Oxygen Delivery Method Room Air Oxygen Flow Rate 04/06/24 11:28 04/06/24 11:29 04/06/24 11:30 Temperature Pulse Rate 51 L Pulse Rate [Right Dorsalis Pedis] 56 L Respiratory Rate 19 Blood Pressure 142/80 H Pulse Oximetry 98 Oxygen Delivery Method Oxygen Flow Rate 04/06/24 11:30 04/06/24 11:35 04/06/24 11:40 Temperature Pulse Rate 47 L 52 L Pulse Rate [Right Dorsalis Pedis] Respiratory Rate 18 18 Blood Pressure 144/70 H Pulse Oximetry 97 96 Oxygen Delivery Method Oxygen Flow Rate 04/06/24 11:45 04/06/24 11:50 04/06/24 11:55 Temperature Pulse Rate 54 L 47 L 52 L Pulse Rate [Right Dorsalis Pedis] Respiratory Rate 19 24 24 Blood Pressure Pulse Oximetry 97 100 96 Oxygen Delivery Method Oxygen Flow Rate 04/06/24 12:00 04/06/24 12:01 04/06/24 12:01 Temperature Pulse Rate 53 L 53 L Pulse Rate [Right Dorsalis Pedis] Respiratory Rate 18 23 Blood Pressure 153/65 H Pulse Oximetry 95 95 Oxygen Delivery Method Oxygen Flow Rate 04/06/24 12:05 04/06/24 12:10 04/06/24 12:15 Temperature Pulse Rate 53 L 54 L 57 L Pulse Rate [Right Dorsalis Pedis] Respiratory Rate 18 24 18 Blood Pressure Pulse Oximetry 94 97 98 Oxygen Delivery Method Oxygen Flow Rate 04/06/24 12:20 04/06/24 12:25 04/06/24 12:30 Temperature Pulse Rate 59 L 54 L 52 L Pulse Rate [Right Dorsalis Pedis] Respiratory Rate 30 H 23 14 Blood Pressure Pulse Oximetry 96 95 96 Oxygen Delivery Method Oxygen Flow Rate 04/06/24 12:31 04/06/24 12:31 04/06/24 12:35 Temperature Pulse Rate 53 L 53 L Pulse Rate [Right Dorsalis Pedis] Respiratory Rate 19 20 Blood Pressure 126/58 L Pulse Oximetry 97 96 Oxygen Delivery Method Oxygen Flow Rate 04/06/24 12:40 04/06/24 12:45 04/06/24 12:45 Temperature Pulse Rate 52 L 49 L Pulse Rate [Right Dorsalis Pedis] Respiratory Rate 22 16 Blood Pressure 118/57 L Pulse Oximetry 97 92 Oxygen Delivery Method Oxygen Flow Rate 04/06/24 12:50 04/06/24 12:50 04/06/24 12:55 Temperature Pulse Rate 47 L 51 L Pulse Rate [Right Dorsalis Pedis] Respiratory Rate 29 H 25 H Blood Pressure 110/58 L Pulse Oximetry 97 93 Oxygen Delivery Method Oxygen Flow Rate 04/06/24 12:55 04/06/24 13:00 04/06/24 13:01 Temperature Pulse Rate 48 L 54 L Pulse Rate [Right Dorsalis Pedis] Respiratory Rate 28 H 22 Blood Pressure 127/63 Pulse Oximetry 92 94 Oxygen Delivery Method Oxygen Flow Rate 04/06/24 13:01 04/06/24 13:05 04/06/24 13:08 Temperature Pulse Rate 49 L 54 L Pulse Rate [Right Dorsalis Pedis] Respiratory Rate 17 15 Blood Pressure 125/60 Pulse Oximetry 98 98 Oxygen Delivery Method Oxygen Flow Rate 2 2 04/06/24 13:08 04/06/24 13:10 04/06/24 13:10 Temperature Pulse Rate 50 L Pulse Rate [Right Dorsalis Pedis] Respiratory Rate 15 Blood Pressure 95/57 L 88/54 L Pulse Oximetry 98 Oxygen Delivery Method Oxygen Flow Rate 2 04/06/24 13:14 04/06/24 13:15 04/06/24 13:15 Temperature Pulse Rate 48 L 50 L Pulse Rate [Right Dorsalis Pedis] Respiratory Rate 16 21 Blood Pressure 90/51 L Pulse Oximetry 97 Oxygen Delivery Method Oxygen Flow Rate 2 04/06/24 13:20 04/06/24 13:20 04/06/24 13:25 Temperature Pulse Rate 46 L Pulse Rate [Right Dorsalis Pedis] Respiratory Rate 17 Blood Pressure 101/55 L 107/59 L Pulse Oximetry 97 Oxygen Delivery Method Oxygen Flow Rate 2 04/06/24 13:25 Temperature Pulse Rate 46 L Pulse Rate [Right Dorsalis Pedis] Respiratory Rate 14 Blood Pressure Pulse Oximetry 96 Oxygen Delivery Method Oxygen Flow Rate 0 MDM - Extremity Injury (Lower) Lab Data Labs: Point of Care Testing Test Results Not applicable Imaging Data Extremity x-ray #1: Radiologist's Impression: Close Hip X-Ray (Signed) Raffy Peguero - 04/06/24 Hip X-Ray (Signed) Kurt Cooper - 02/25/24 Hip X-Ray (Signed) Kurt Cooper - 02/25/24 Hip X-Ray (Signed) Brian Bailey - 01/24/23 Pelvis X-Ray (Signed) Brian Bailey - 01/24/[address] [address] XRay Report Signed Patient: Anahi Vera MR#: [id number] : 1955 Acct:[id number] Age/Sex: 69 / F Date of Service: 04/06/24 Loc: ED Accession Number: [id number] Procedure: XR hip w pel if done RT 2V Ordering Provider: Mimi Calhoun D.O. PROCEDURE: XR HIP W PEL IF DONE RT 2V INDICATIONS: thinks she dislocated it again TECHNIQUE: AP pelvis with lateral view(s) of the right hip(s). COMPARISON: [facility], CR, XR PELVIS WITH LATERAL HIP RIGHT, 02/29/2024, 10:14. [facility], CR, XR HIP W PEL IF DONE RT 2V, 02/25/2024, 20:02. [facility], CR, XR HIP W PEL IF DONE RT 2V, 01/24/2023, 13:06. FINDINGS: Bones: Right hip arthroplasty. Superior dislocation of the right hip arthroplasty. Pelvic ring appears intact. No suspicious bony lesions. Soft tissues: The visualized bowel gas pattern is normal. Calcifications projecting over the pelvis, possible fibroids. IMPRESSION: Superior dislocation of right hip arthroplasty. Dictated by: Raffy Peguero M.D. on 04/06/2024 at 12:02 Approved by: Raffy Peguero M.D. on 04/06/2024 at 12:03 post reduc xray: Radiologist's Impression: Close Hip X-Ray (Signed) Raffy Peguero - 04/06/24 Hip X-Ray (Signed) Raffy Peguero - 04/06/24 Hip X-Ray (Signed) Kurt Cooper - 02/25/24 Hip X-Ray (Signed) Kurt Cooper - 02/25/24 Hip X-Ray (Signed) Brian Bailey - 01/24/23 Pelvis X-Ray (Signed) Brian Bailey - 01/24/23 Launch?Image [address] [address] XRay Report Signed Patient: Anahi Vera MR#: [id number] : 1955 Acct:[id number] Age/Sex: 69 / F Date of Service: 04/06/24 Loc: ED Accession Number: [id number] Procedure: XR hip w pel if done RT 2V Ordering Provider: Mimi Calhoun D.O. PROCEDURE: XR HIP W PEL IF DONE RT 2V INDICATIONS: post reduction TECHNIQUE: AP pelvis with lateral view(s) of the right hip(s). COMPARISON: [facility], CR, XR HIP W PEL IF DONE RT 2V, 04/06/2024, 11:15. [facility], CR, XR HIP W PEL IF DONE RT 2V, 02/25/2024, 20:02. FINDINGS: Bones: No fractures or dislocations. Right hip arthroplasty appears appropriately position status post reduction. Pelvic ring appears intact. No suspicious bony lesions. Soft tissues: The visualized bowel gas pattern is normal. No suspicious soft tissue calcifications. IMPRESSION: Right hip arthroplasty appears appropriately positioned status post reduction. Dictated by: Raffy Peguero M.D. on 04/06/2024 at 13:26 Approved by: Raffy Peguero M.D. on 04/06/2024 at 13:27 MDM Narrative Medical decision making narrative: 69-year-old female with a history of recurrent hip dislocation, patient presents with prior which occurred while she was seated on her knees and then bent forward causing quite a bit of flexion of the hip and knee. This occurred about 830 this morning. Patient presents by private auto. She is neurovascularly intact. Discussed risks versus benefits for procedural sedation. Patient notes they had difficulty with reduction with last visit. Patient had procedural sedation did require BVM and O2, had good sedation was able to read reduced without difficulty with flexion of the along with internal and particularly external rotation. Patient had improvement on repeat x-ray. Patient states feels improved as well. Was placed in knee immobilizer. She also has a knee immobilizer at home as well as a walker available. She has follow up this with Dr. Norman her orthopedic surgeon already in place. Discussed return precautions. Patient ambulated with walker and knee immobilizer without issue. Discharge Plan Departure Patient Disposition: Home Clinical Impression: Dislocation, hip closed Qualifiers: Encounter type: subsequent encounter Laterality: right Qualified Code(s): S73.004D - Unspecified dislocation of right hip, subsequent encounter Instructions: DI for Hip Dislocation -- Adult Activity Restrictions/Additional Instructions: Follow-up with orthopedic surgery, call to set up an appointment in the next week. Who going to want to avoid movements such as bending of the hip with flexion of the knee and/or rotation at the same time. Continue to wear your knee immobilizer until your follow-up with orthopedic surgery this will help prevent recurrent dislocation. Your doctor will give you safety precautions to keep your hip centred in its socket during the healing period. Be sure to follow these precautions. Keep your knees and toes pointed forward when you sit in a chair, walk, or stand. Do not sit with your legs crossed. Do not bend at the waist more than 90?. Be careful when leaning or when moving in bed to keep your legs as straight ahead as possible. If you have a hip brace, wear it as directed. Do not remove it unless your doctor says you can. If you remove the brace to shower, be extremely careful. Follow hip precautions to limit hip movement. Rest your hip as much as you can. You will need to change your activities to avoid movements that irritate the hip. If your hip is swollen, put ice or a cold pack on it for 10 to 20 minutes at a time. Try to do this every 1 to 2 hours for the next 3 days (when you are awake) or until the swelling goes down. Put a thin cloth between the ice and your skin. Please return for recurrent symptoms, increasing pain, numbness, tingling or weakness or other new or concerning changes. Prescriptions: No Action losartan-hydrochlorothiazide 100-25 mg Tablet 1 tab PO DAILY metformin 500 mg Tablet Extended Release 24 Hr 500 mg PO DAILY meloxicam 7.5 mg Tablet 7.5 mg PO BID PRN (Reason: Pain) tizanidine 4 mg Capsule 4 mg PO BID PRN (Reason: Spasms) Referrals: Rigoberto Bird ARNP [Primary Care Provider] - Ibis Norman MD [Physician] - Stand Alone Forms: Patient Portal/API, Work Release Note
[2024-04-06] MEDS: ONDANSETRON 4 MG/2 ML INJ IV (12:28)
[2024-04-06] MEDS: MORPHINE 4 MG/ML INJ IV (12:28)
[2024-04-06] MEDS: SODIUM CHLORIDE 0.9% 1,000 ML 150 ML IV (12:38)
[2024-04-06] MEDS: propofoL 200 MG/20 ML VIAL IV (13:00)
--- NOTE | 2024-04-06 13:04 | DI.RAD.S_ITS ---
PROCEDURE: XR HIP W PEL IF DONE RT 2V INDICATIONS: post reduction TECHNIQUE: AP pelvis with lateral view(s) of the right hip(s). COMPARISON: [facility], CR, XR HIP W PEL IF DONE RT 2V, 04/06/2024, 11:15. [facility], CR, XR HIP W PEL IF DONE RT 2V, 02/25/2024, 20:02. FINDINGS: Bones: No fractures or dislocations. Right hip arthroplasty appears appropriately position status post reduction. Pelvic ring appears intact. No suspicious bony lesions. Soft tissues: The visualized bowel gas pattern is normal. No suspicious soft tissue calcifications. IMPRESSION: Right hip arthroplasty appears appropriately positioned status post reduction. Dictated by: Raffy Pegueor M.D. on 04/06/2024 at 13:26 Approved by: Raffy Peguero M.D. on 04/06/2024 at 13:27
== END 2024-04-06 14:50 | disposition home or self-care (01) ==
PROVIDERS: Emergency Provider Emergency Medicine; PCP Registered Nurse
DX: S73.004A Unspecified dislocation of right hip, initial encounter (principal)
CPT/HCPCS: 27265; 36415; 73502; 96361; 96374; 96375; 99152; 99153; 99284; 99285; J2270; J2405; J2704

== ENCOUNTER 2024-05-03 08:23 | Emergency (ER) | payer OTHER, SELFPAY ==
[2023-01-24 13:53] VITALS: BMI 37.8
[2024-05-03] VITALS (47 sets, daily range): BP systolic 95–168; BP diastolic 55–87; PULSE 43–97; RESP 7–25; TEMP 36.4; O2SAT 94–100; BMI 38.9
--- NOTE | 2024-05-03 08:33 | ED.EXTPRO ---
HPI - Extremity Problem General Chief complaint: Extremity Injury, Lower Stated complaint: dislocated hip Time Seen by Provider: 05/03/24 08:26 History of Present Illness HPI Narrative: Patient here with for complaints of right hip pain/possible dislocation. Patient was getting out of the bed on the right side when she felt pain in the right hip. This is not new. This is patient's 3rd visit in the past few months for hip dislocation. Patient followed by Orthopedics, Dr. Norman. Is trying to plan for surgery but patient has a trip coming up and wants to delay the surgery. Has prosthetic hip. No numbness or tingling to the foot or leg. Pants removed shoes and socks removed. Right leg is shortened and externally rotated. Consent for procedural sedation and closed reduction reviewed with patient. at bedside. NPO since dinner last night. Related Data Home Medications Medication Instructions Recorded Confirmed losartan 100 1 tab PO DAILY 01/16/23 02/05/23 mg-hydrochlorothiazide 25 mg tablet meloxicam 7.5 mg tablet 7.5 mg PO BID PRN Pain 01/16/23 02/05/23 metformin 500 mg tablet,extended 500 mg PO DAILY 01/16/23 02/05/23 release 24 hr tizanidine 4 mg capsule 4 mg PO BID PRN Spasms 01/24/23 02/05/23 Allergies Allergy/AdvReac Type Severity Reaction Status Date / Time latex Allergy Severe Rash Verified 02/05/23 11:45 Penicillins Allergy Intermediate Rash Verified 02/05/23 11:45 Sulfa (Sulfonamide AdvReac I can't Verified 02/05/23 11:45 Antibiotics) remember, I was told not to take it Review of Systems Review of Systems Narrative: GENERAL: negative chills, fatigue, malaise, fever, sweats. 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 EYES: Pupils equal round ENT: Mucous membranes moist. NECK: Trachea midline. CARDIOVASCULAR: Regular rate and rhythm RESPIRATORY: Clear to auscultation. Breath sounds equal bilaterally. No wheezes, rales, or rhonchi. GASTROINTESTINAL: Abdomen soft, non-tender EXTREMITIES: Examination right lower extremity hip to toes exposed. Foot warm soft pink strong pedal pulse brisk cap refills light touch intact to foot and toes. Leg is shortened externally rotated. Limited range of motion due to pain. BACK: No flank tenderness. NEURO: AOx4. SKIN: Warm and dry PSYCH: Not anxious, is cooperative Initial Vital Signs Initial Vital Signs: Vital Signs Temperature 97.6 F 05/03/24 08:32 Pulse Rate 51 L 05/03/24 08:32 Respiratory Rate 16 05/03/24 08:32 Blood Pressure 161/76 H 05/03/24 08:32 Pulse Oximetry 97 05/03/24 08:32 Oxygen Delivery Method Room Air 05/03/24 08:32 Procedures Orthopedic Joint Reduction Joint #1: Time of procedure: 09:34 Time Out Performed: Yes Side: right Joint Reduction Location: hip Analgesia: procedural sedation Technique used: traction/counter-traction Additional Comments: Unable to reduce the hip. Procedural Sedation Time of procedure: 09:28 Consent signed: Yes Time out performed: Yes Indication: fracture/dislocation reduction Presedation Evaluation: Right hip dislocation. ASA Class: II Mallampati Airway Classification: Class II Time of Last PO Intake: 18:00 Preparation: threat monitoring analyst applied, pulse oximeter, capnometry used, supplemental O2 applied, reversal agents at bedside, suction/airway equipment at bedside and IV secured IV Propofol dose (mg): 75 ED Sedation Level: Moderate (Concious) Patient Tolerated Procedure: Well and No complications Complications: none Additional Comments: Unable to successfully reduce the hip. No reversal medications needed. No airway compromise. No nausea or vomiting. Orthopedics and anesthesia did come to provide help for anesthesia and Re attempting for reduction. Course Orders Ordered: Discontinued Medications Diazepam (Diazepam 10 Mg/2 Ml Syringe) 2.5 mg IV NOW ONE Stop: 05/03/24 10:31 Last Admin: 05/03/24 10:34 Dose: 2.5 mg Documented By: DAVID Hydromorphone HCl (Hydromorphone 1 Mg Inj) 1 mg IV NOW ONE Stop: 05/03/24 08:32 Last Admin: 05/03/24 09:12 Dose: 1 mg Documented By: ISA Ondansetron HCl (Ondansetron 4 Mg/2 Ml Inj) 4 mg IV NOW ONE Stop: 05/03/24 08:32 Last Admin: 05/03/24 09:12 Dose: 4 mg Documented By: ISA Propofol (Propofol 200 Mg/20 Ml Vial) 100 mg 1 mg/kg (100 mg) IV NOW ONE Stop: 05/03/24 08:59 Last Admin: 05/03/24 09:25 Dose: 75 mg Documented By: ISA Vital Signs Vital signs: Vital Signs - 8 hr 05/03/24 08:32 05/03/24 08:32 05/03/24 08:32 Temperature 97.6 F Pulse Rate 51 L 67 Respiratory Rate 16 Blood Pressure 161/76 H 161/76 H Pulse Oximetry 97 97 Oxygen Delivery Method Room Air 05/03/24 09:00 05/03/24 09:05 05/03/24 09:05 Temperature Pulse Rate 57 L 60 Respiratory Rate 25 H 19 Blood Pressure 168/73 H Pulse Oximetry 99 98 Oxygen Delivery Method 05/03/24 09:16 05/03/24 09:16 05/03/24 09:18 Temperature Pulse Rate 60 Respiratory Rate 15 Blood Pressure 151/69 H 131/63 Pulse Oximetry 95 Oxygen Delivery Method 05/03/24 09:18 05/03/24 09:46 05/03/24 09:54 Temperature Pulse Rate 58 L 48 L Respiratory Rate 21 16 Blood Pressure 135/67 Pulse Oximetry 96 Oxygen Delivery Method 05/03/24 09:54 05/03/24 09:55 05/03/24 09:57 Temperature Pulse Rate 48 L 44 L 48 L Respiratory Rate 8 L 12 11 L Blood Pressure Pulse Oximetry 98 99 98 Oxygen Delivery Method 05/03/24 09:57 05/03/24 09:58 05/03/24 09:58 Temperature Pulse Rate 47 L Respiratory Rate 10 L Blood Pressure 157/67 H 144/67 H Pulse Oximetry 100 Oxygen Delivery Method 05/03/24 10:00 05/03/24 10:00 05/03/24 10:02 Temperature Pulse Rate 47 L Respiratory Rate 10 L Blood Pressure 136/61 134/69 Pulse Oximetry 99 Oxygen Delivery Method 05/03/24 10:02 05/03/24 10:04 05/03/24 10:04 Temperature Pulse Rate 48 L 46 L Respiratory Rate 9 L 7 L Blood Pressure 133/70 Pulse Oximetry 100 100 Oxygen Delivery Method 05/03/24 10:05 05/03/24 10:06 05/03/24 10:06 Temperature Pulse Rate 49 L 45 L Respiratory Rate 8 L 13 Blood Pressure 131/67 Pulse Oximetry 100 100 Oxygen Delivery Method 05/03/24 10:08 05/03/24 10:08 05/03/24 10:10 Temperature Pulse Rate 46 L Respiratory Rate 9 L Blood Pressure 133/71 131/64 Pulse Oximetry 99 Oxygen Delivery Method 05/03/24 10:10 05/03/24 10:12 05/03/24 10:12 Temperature Pulse Rate 45 L 44 L Respiratory Rate 10 L 8 L Blood Pressure 126/60 Pulse Oximetry 100 100 Oxygen Delivery Method 05/03/24 10:15 05/03/24 10:15 05/03/24 10:17 Temperature Pulse Rate 46 L Respiratory Rate 9 L Blood Pressure 154/67 H 140/66 Pulse Oximetry 99 Oxygen Delivery Method 05/03/24 10:17 05/03/24 10:18 05/03/24 10:18 Temperature Pulse Rate 46 L 45 L Respiratory Rate 13 8 L Blood Pressure 136/57 L Pulse Oximetry 100 100 Oxygen Delivery Method 05/03/24 10:20 05/03/24 10:20 05/03/24 10:22 Temperature Pulse Rate 47 L Respiratory Rate 9 L Blood Pressure 143/63 H 135/63 Pulse Oximetry 100 Oxygen Delivery Method 05/03/24 10:22 05/03/24 10:24 05/03/24 10:24 Temperature Pulse Rate 44 L 44 L Respiratory Rate 9 L 10 L Blood Pressure 136/65 Pulse Oximetry 100 100 Oxygen Delivery Method 05/03/24 10:25 05/03/24 10:26 05/03/24 10:26 Temperature Pulse Rate 48 L 52 L Respiratory Rate 10 L 9 L Blood Pressure 134/67 Pulse Oximetry 99 97 Oxygen Delivery Method 05/03/24 10:28 05/03/24 10:28 05/03/24 10:30 Temperature Pulse Rate 44 L Respiratory Rate 14 Blood Pressure 133/63 136/72 Pulse Oximetry 100 Oxygen Delivery Method 05/03/24 10:30 05/03/24 10:33 05/03/24 10:33 Temperature Pulse Rate 44 L 44 L Respiratory Rate 15 7 L Blood Pressure 142/63 H Pulse Oximetry 100 99 Oxygen Delivery Method 05/03/24 10:34 05/03/24 10:34 05/03/24 10:35 Temperature Pulse Rate 43 L 46 L Respiratory Rate 10 L 18 Blood Pressure 141/65 H Pulse Oximetry 100 100 Oxygen Delivery Method 05/03/24 10:36 05/03/24 10:36 05/03/24 10:38 Temperature Pulse Rate 44 L Respiratory Rate 18 Blood Pressure 149/71 H 134/55 L Pulse Oximetry 100 Oxygen Delivery Method 05/03/24 10:38 05/03/24 10:40 05/03/24 10:40 Temperature Pulse Rate 57 L 48 L Respiratory Rate 16 Blood Pressure 130/60 Pulse Oximetry 98 97 Oxygen Delivery Method 05/03/24 11:00 05/03/24 11:01 05/03/24 11:01 Temperature Pulse Rate 49 L 55 L Respiratory Rate 16 21 Blood Pressure 136/67 Pulse Oximetry 99 97 Oxygen Delivery Method 05/03/24 11:12 05/03/24 11:12 05/03/24 11:15 Temperature Pulse Rate 97 H Respiratory Rate 19 Blood Pressure 130/63 95/56 L Pulse Oximetry 94 Oxygen Delivery Method 05/03/24 11:15 05/03/24 11:20 05/03/24 11:20 Temperature Pulse Rate 85 81 Respiratory Rate 11 L 12 Blood Pressure 98/59 L Pulse Oximetry 97 98 Oxygen Delivery Method 05/03/24 11:25 05/03/24 11:25 05/03/24 11:30 Temperature Pulse Rate 76 Respiratory Rate Blood Pressure 108/63 112/65 Pulse Oximetry 100 Oxygen Delivery Method 05/03/24 11:30 05/03/24 11:36 05/03/24 11:36 Temperature Pulse Rate 73 71 Respiratory Rate Blood Pressure 122/69 Pulse Oximetry 96 98 Oxygen Delivery Method 05/03/24 11:40 05/03/24 11:40 05/03/24 11:46 Temperature Pulse Rate 70 Respiratory Rate 17 Blood Pressure 116/60 115/87 Pulse Oximetry 99 Oxygen Delivery Method 05/03/24 11:46 05/03/24 11:50 05/03/24 11:50 Temperature Pulse Rate 71 68 Respiratory Rate 16 13 Blood Pressure 134/63 Pulse Oximetry 96 99 Oxygen Delivery Method Room Air 05/03/24 12:00 05/03/24 12:01 05/03/24 12:01 Temperature Pulse Rate 69 74 Respiratory Rate 15 16 Blood Pressure 115/61 Pulse Oximetry 97 96 Oxygen Delivery Method MDM - Extremity (Nontraumatic) Lab Data Labs: Point of Care Testing Test Results Not applicable Imaging Data Extremity x-ray #1: Radiologist's Impression: [address] [address] XRay Report Signed Patient: Anahi Vera MR#: [id number] : 1955 Acct:[id number] Age/Sex: 69 / F Date of Service: 05/03/24 Loc: ED Accession Number: [id number] Procedure: XR hip w pel if done RT 2V Ordering Provider: Darrius Villalobos MD PROCEDURE: XR HIP W PEL IF DONE RT 2V INDICATIONS: Pain/injury/dislocation TECHNIQUE: AP pelvis with lateral view(s) of the right hip(s). COMPARISON: [facility], CR, XR HIP W PEL IF DONE RT 2V, 04/06/2024, 13:00. [facility], CT, CT HIP RIGHT WITHOUT CONTRAST, 04/23/2024, 16:12. FINDINGS: Bones: Dislocated total right hip arthroplasty. No fracture identified. Soft tissues: The visualized bowel gas pattern is normal. Calcified uterine fibroid. IMPRESSION: Dislocated total right hip arthroplasty. No fracture identified. Dictated by: Sushil Hazel M.D. on 05/03/2024 at 8:55 Approved by: Sushil Hazel M.D. on 05/03/2024 at 8:56 Extremity x-ray #2: Radiologist's Impression: [address] [address] XRay Report Signed Patient: Anahi Vera MR#: [id number] : 1955 Acct:[id number] Age/Sex: 69 / F Date of Service: 05/03/24 Loc: ED Accession Number: [id number] Procedure: XR hip RT 1V Ordering Provider: Darrius Villalobos MD PROCEDURE: XR HIP RT 1V INDICATIONS: HIP RELOCATION TECHNIQUE: 2 view(s) of the hip acquired. COMPARISON: [facility], CR, XR HIP W PEL IF DONE RT 2V, 05/03/2024, 8:31. FINDINGS: Bones: There is interval reduction of earlier noted dislocation at right hip prosthesis. Right hip alignment is now anatomic. No acute fracture is seen. No gross hardware loosening or failure. Soft tissues: No suspicious soft tissue densities. IMPRESSION: Interval reduction of earlier noted right hip prosthesis dislocation with now anatomic right hip alignment. No gross hardware loosening or failure. No acute fracture is seen. Dictated by: Kurt Cooper M.D. on 05/03/2024 at 12:05 Approved by: Kurt Cooper M.D. on 05/03/2024 at 12:06 [facility] Narrative Medical decision making narrative: Patient here with for complaints of right hip pain/possible dislocation. Patient was getting out of the bed on the right side when she felt pain in the right hip. This is not new. This is patient's 3rd visit in the past few months for hip dislocation. Patient followed by Orthopedics, Dr. Norman. Is trying to plan for surgery but patient has a trip coming up and wants to delay the surgery. Has prosthetic hip. No numbness or tingling to the foot or leg. Pants removed shoes and socks removed. Right leg is shortened and externally rotated. Consent for procedural sedation and closed reduction reviewed with patient. at bedside. NPO since dinner last night. After history and exam Dilaudid Zofran consent for residual sedation and closed reduction right hip. X-ray right hip, threat monitoring analyst [facility] Medical records reviewed: Patient notes from April 06, 2024 seen here for the same complaint, 100 mg propofol used for sedation Differential considered: Includes but not limited to hip fracture hip dislocation Imaging studies independently reviewed: X-ray right hip, dislocation seen, repeat right hip x-ray post reduction successful anatomical position Consultations: 9:[address] Matos, orthopedics, she will try to get her partner Dr. Chatman to see patient today. She is currently at clinic out of town. Dr. Chatman as well as anesthesia in emergency department room to do closed reduction and sedation. Successful reduction completed Treatments: Dilblade Brunson procedural sedation closed reduction Re-evaluations: 12:26 p.m.. Patient up and awake and talking. Feels a little groggy but awake alert oriented x4. She does not recall the procedures. Discussion: Appropriate for discharge home exam is reassuring. Patient at baseline at time of discharge. Return precautions reviewed. Sedation instructions provided. is driving. Not toxic at discharge. She desires discharge home. Please see notes for Dr. Flaquita Lopez with anesthesia for successful reduction Diagnosis: Right hip dislocation Discharge Plan Departure Patient Disposition: Home Clinical Impression: Dislocation, hip closed Qualifiers: Encounter type: initial encounter Laterality: right Qualified Code(s): S73.004A - Unspecified dislocation of right hip, initial encounter Instructions: DI for Hip Dislocation -- Adult, DI for Moderate Sedation Activity Restrictions/Additional Instructions: You have received narcotics for sedation. Please reviewed sedation discharge instructions. No driving operating machinery today. No taking sedation medications at home. No alcohol. Please see your orthopedic provider as scheduled for surgical intervention as planned. Return if worse if any questions or concerns Prescriptions: No Action losartan-hydrochlorothiazide 100-25 mg Tablet 1 tab PO DAILY metformin 500 mg Tablet Extended Release 24 Hr 500 mg PO DAILY meloxicam 7.5 mg Tablet 7.5 mg PO BID PRN (Reason: Pain) tizanidine 4 mg Capsule 4 mg PO BID PRN (Reason: Spasms) Referrals: Rigoberto Bird ARNP [Primary Care Provider] - Stand Alone Forms: Patient Portal/API
[2024-05-03] MEDS: ONDANSETRON 4 MG/2 ML INJ IV (09:12)
[2024-05-03] MEDS: HYDROMORPHONE 1 MG INJ IV (09:12)
[2024-05-03] MEDS: propofoL 200 MG/20 ML VIAL 100 MG IV (09:25)
[2024-05-03] MEDS: diazePAM 10 MG/2 ML SYRINGE 2.5 MG IV (10:34)
--- NOTE | 2024-05-03 11:00 | PC.NURSE ---
1st reduction in ED by Dr Villalobos unsuccessful. Dr Pollock, Ortho, called and in ED to try and reduce with the help of OR staff.
--- NOTE | 2024-05-03 11:05 | P.OP_ITS ---
Operative Date/Time/Diagnoses Date of procedure: 05/03/24 Pre-op diagnosis: Prosthetic right hip dislocation Post-op diagnosis: same Procedure & Clinicians Procedure: Closed reduction of right hip dislocation Same procedure as scheduled: Yes Surgeon: Iraj Boone Operative Notes Procedure in detail: This 69-year-old female patient has had recurrent right hip dislocations. She sustained another 1 within the last 24 hours. 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 A prior closed reduction attempted been performed in the emergency department but was aborted due to bradycardia. The services of anesthesia and myself were requested in order to ensure a safe reduction given her bradycardia issues during the prior attempt. She has had 2 prior successful closed reductions which have been documented within our facility. Prior to proceeding with closed reduction the patient's name, the laterality, the patient's date of , and the procedure be performed were identified with a time-out procedure. Propofol was administered for sedation. Using a combination of hip flexion, knee flexion, external rotation, and in-line traction with counter traction on the ASIS bilaterally the hip was reduced. There was a palpable clunk. Prior to reduction she had obviously shortened on her operative side. This was resolved following reduction. Flat plate radiograph will be obtained demonstrating successful reduction. Patient will follow up with her operative surgeon for further follow up.
--- NOTE | 2024-05-03 11:10 | DI.RAD.S_ITS ---
PROCEDURE: XR HIP RT 1V INDICATIONS: HIP RELOCATION TECHNIQUE: 2 view(s) of the hip acquired. COMPARISON: [facility], CR, XR HIP W PEL IF DONE RT 2V, 05/03/2024, 8:31. FINDINGS: Bones: There is interval reduction of earlier noted dislocation at right hip prosthesis. Right hip alignment is now anatomic. No acute fracture is seen. No gross hardware loosening or failure. Soft tissues: No suspicious soft tissue densities. IMPRESSION: Interval reduction of earlier noted right hip prosthesis dislocation with now anatomic right hip alignment. No gross hardware loosening or failure. No acute fracture is seen. Dictated by: Kurt Cooper M.D. on 05/03/2024 at 12:05 Approved by: Kurt Cooper M.D. on 05/03/2024 at 12:06
== END 2024-05-03 12:44 | disposition home or self-care (01) ==
PROVIDERS: Emergency Provider Emergency Medicine; PCP Registered Nurse
DX: S73.004A Unspecified dislocation of right hip, initial encounter (principal)
CPT/HCPCS: 27265; 36415; 73501; 73502; 96374; 96375; 99152; 99153; 99285; J1170; J2405; J2704; J3360

== ENCOUNTER 2025-02-09 21:23 | Emergency (ER) | payer OTHER, SELFPAY ==
[2023-01-24 13:53] VITALS: BMI 37.8
[2025-02-09 21:26] VITALS: BP 146/67; PULSE 73; RESP 20; TEMP 37.2; O2SAT 96; BMI 36.8
--- NOTE | 2025-02-09 21:50 | DI.RAD.S_ITS ---
PROCEDURE: XR HIP W PEL IF DONE RT 2V INDICATIONS: hip replacement bent to far and thinks she dislocated hip TECHNIQUE: AP pelvis with lateral view(s) of the right hip(s). COMPARISON: [facility], CR, XR HIP W PEL IF DONE RT 2V, 05/03/2024, 8:31. FINDINGS: Bones: Smear dislocation of the right femoroacetabular prosthesis.. No visible fractures. Hardware appears intact and in stable position. Pelvic ring remains intact. Soft tissues: The visualized bowel gas pattern is normal. Pelvic phleboliths and dystrophic left pelvic calcification are stable. IMPRESSION: Acute superior right hip dislocation. Dictated by: Rubi Shearer M.D. on 02/09/2025 at 22:19 Approved by: Rubi Shearer M.D. on 02/09/2025 at 22:21
[2025-02-09] MEDS: fentaNYL 100 MCG/2 ML INJ 50 MCG IV (22:08)
[2025-02-09 22:13] VITALS: PULSE 68; O2SAT 94
[2025-02-09 22:30] VITALS: BP 134/63; PULSE 60; O2SAT 92
--- NOTE | 2025-02-09 22:38 | ED.LOWEXIN ---
HPI - Extremity Injury (Lower) General Chief Complaint: Extremity Injury, Lower Stated Complaint: dislocated RT hip, on sail boat Time Seen by Provider: 02/09/25 22:16 Source: patient Mode of arrival: Wheelchair History of Present Illness HPI Narrative: 69-year-old female with history of right hip prosthetic surgery January 2023 at [facility] by Dr. Norman, recurrent dislocations, for possible prior dislocations, last reduced by Orthopedic surgery Dr. Chatman here on 05/03/2024 with IV propofol. This evening 7:00 p.m. she was on her 20 ft sailboat, on all fours position kneeling, felt popping out and pain sensation of her same right hip. Related Data Home Medications ?Medication ?Instructions ?Recorded ?Confirmed losartan 100 1 tab PO DAILY 01/16/23 02/05/23 mg-hydrochlorothiazide 25 mg tablet meloxicam 7.5 mg tablet 7.5 mg PO BID PRN Pain 01/16/23 02/05/23 metformin 500 mg tablet,extended 500 mg PO DAILY 01/16/23 02/05/23 release 24 hr tizanidine 4 mg capsule 4 mg PO BID PRN Spasms 01/24/23 02/05/23 Allergies Allergy/AdvReac Type Severity Reaction Status Date / Time latex Allergy Severe Rash Verified 02/09/25 21:26 Penicillins Allergy Intermediate Rash Verified 02/09/25 21:26 Sulfa (Sulfonamide AdvReac I can't Verified 02/09/25 21:26 Antibiotics) remember, I was told not to take it Patient History Medical History Osteoarthritis Pre-diabetes Nasal fracture HTN (hypertension) Hearing loss, left 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 HEAD: Atraumatic. Normocephalic. EYES: Pupils equal round and reactive. Extraocular motions intact. No scleral icterus. No injection or drainage. ENT: Nose without bleeding, purulent drainage. Throat without erythema, tonsillar hypertrophy or exudate. Airway patent. NECK: Trachea midline. Non tender CARDIOVASCULAR: Regular rate and rhythm without murmurs, gallops, or rubs. RESPIRATORY: Clear to auscultation. Breath sounds equal bilaterally. No wheezes, rales, or rhonchi. GASTROINTESTINAL: Abdomen soft, non-tender, nondistended. EXTREMITIES: No edema or joint tenderness. Well-healed right lateral hip scar, some anterior fullness, slight limb length discrepancy. Good DP pulse right foot. Well-perfused toes. BACK: Nontender without deformity or crepitance. No flank tenderness. NEURO: AOx3. Motor functions grossly nonfocal. SKIN: No rash or erythema of visible areas Initial Vital Signs Initial Vital Signs: Vital Signs Temperature 98.9 F 02/09/25 21:26 Pulse Rate 73 02/09/25 21:26 Respiratory Rate 20 02/09/25 21:26 Blood Pressure 146/67 H 02/09/25 21:26 Pulse Oximetry 96 02/09/25 21:26 Oxygen Delivery Method Room Air 02/09/25 21:26 Procedures Orthopedic Joint Reduction Joint #1: Time of procedure: 01:15 Time Out Performed: Yes Side: right Joint Reduction Location: hip Analgesia: procedural sedation Technique used: traction/counter-traction (Flexion of knee and hip with distraction and external rotation internal rotation, some palpable clunk, no longer had limb length discrepancy on extension.) Post-reduction neuro exam: intact Post-reduction vascular: intact Post Reduction X-Ray Obtained: Yes Post Reduction X-Ray Results: reduced Patient Tolerated Procedure: Well Additional Comments: See separate anesthesia note from [facility] regarding her sedation, using ketamine and propofol. Course Orders Ordered: ED Orders 02/09/25 21:50 XR hip w pel RT 2V Stat 02/10/25 01:03 XR hip w pel RT 2V Stat Discontinued Medications Fentanyl (Fentanyl 100 Mcg/2 Ml Inj) 50 mcg IV NOW ONE Stop: 02/09/25 22:02 Last Admin: 02/09/25 22:08 Dose: 50 mcg Documented By: OLGA Fentanyl (Fentanyl 100 Mcg/2 Ml Inj) 25 mcg IV NOW ONE Stop: 02/09/25 23:15 Last Admin: 02/09/25 23:21 Dose: 25 mcg Documented By: CANDIDO Propofol (Propofol 200 Mg/20 Ml Vial) 200 mg IV NOW ONE Stop: 02/09/25 23:33 Last Admin: 02/10/25 01:38 Dose: Not Given Documented By: CANDIDO Vital Signs Vital signs: Vital Signs - 8 hr 02/09/25 21:26 02/09/25 22:13 02/09/25 22:30 Temperature 98.9 F Pulse Rate 73 68 Respiratory Rate 20 Blood Pressure 146/67 H 134/63 Pulse Oximetry 96 94 Oxygen Delivery Method Room Air 02/09/25 22:30 02/09/25 23:00 02/09/25 23:00 Temperature Pulse Rate 60 69 Respiratory Rate Blood Pressure 148/65 H Pulse Oximetry 92 94 Oxygen Delivery Method 02/09/25 23:30 02/09/25 23:30 02/10/25 00:00 Temperature Pulse Rate 66 57 L Respiratory Rate Blood Pressure 136/64 Pulse Oximetry 97 95 Oxygen Delivery Method Room Air 02/10/25 00:00 02/10/25 00:10 02/10/25 00:10 Temperature Pulse Rate 64 Respiratory Rate 25 H Blood Pressure 146/68 H 170/72 H Pulse Oximetry 95 Oxygen Delivery Method Room Air 02/10/25 00:20 02/10/25 00:30 02/10/25 00:30 Temperature Pulse Rate 65 Respiratory Rate 12 Blood Pressure 145/67 H 145/63 H Pulse Oximetry 94 Oxygen Delivery Method Room Air 02/10/25 00:40 02/10/25 00:40 02/10/25 00:48 Temperature Pulse Rate 65 Respiratory Rate 13 Blood Pressure 139/65 141/68 H Pulse Oximetry Oxygen Delivery Method 02/10/25 00:48 02/10/25 00:50 02/10/25 00:50 Temperature Pulse Rate 68 68 Respiratory Rate 20 22 Blood Pressure 145/70 H Pulse Oximetry 95 95 Oxygen Delivery Method 02/10/25 00:56 02/10/25 00:56 02/10/25 01:00 Temperature Pulse Rate 66 Respiratory Rate 24 Blood Pressure 141/69 H 148/67 H Pulse Oximetry 99 Oxygen Delivery Method 02/10/25 01:05 02/10/25 01:05 02/10/25 01:10 Temperature Pulse Rate 61 60 Respiratory Rate 11 L 17 Blood Pressure 123/60 Pulse Oximetry 100 98 Oxygen Delivery Method 02/10/25 01:10 02/10/25 01:15 02/10/25 01:15 Temperature 97.4 F L Pulse Rate 53 L Respiratory Rate 14 Blood Pressure 127/59 L 134/65 134/65 Pulse Oximetry 99 Oxygen Delivery Method 02/10/25 01:15 02/10/25 01:20 02/10/25 01:20 Temperature 97.4 F L Pulse Rate 58 L 59 L 57 L Respiratory Rate 14 16 15 Blood Pressure 136/68 Pulse Oximetry 98 99 99 Oxygen Delivery Method 02/10/25 01:20 02/10/25 01:25 02/10/25 01:25 Temperature 97.3 F L Pulse Rate 60 Respiratory Rate 16 Blood Pressure 136/68 138/73 138/73 Pulse Oximetry 98 Oxygen Delivery Method 02/10/25 01:25 02/10/25 01:30 02/10/25 01:30 Temperature 97.7 F Pulse Rate 60 57 L 60 Respiratory Rate 20 17 19 Blood Pressure 142/70 H Pulse Oximetry 98 98 98 Oxygen Delivery Method 02/10/25 01:30 02/10/25 01:35 02/10/25 01:35 Temperature Pulse Rate 56 L Respiratory Rate 19 Blood Pressure 142/70 H 133/62 Pulse Oximetry 98 Oxygen Delivery Method 02/10/25 01:45 02/10/25 01:45 02/10/25 02:00 Temperature Pulse Rate 55 L Respiratory Rate 18 Blood Pressure 130/63 134/60 Pulse Oximetry 95 Oxygen Delivery Method 02/10/25 02:00 02/10/25 02:30 Temperature Pulse Rate 59 L 59 L Respiratory Rate 17 Blood Pressure Pulse Oximetry 96 96 Oxygen Delivery Method MDM - Extremity Injury (Lower) Lab Data Labs: Point of Care Testing Test Results Not applicable Imaging Data Extremity x-ray #1: Radiologist's Impression: [address] [address] XRay Report Signed Patient: Anahi Vera MR#: [id number] : 1955 Acct:[id number] Age/Sex: 69 / F Date of Service: 02/09/25 Loc: ED Accession Number: [id number] Procedure: XR hip w pel RT 2V Ordering Provider: Soy Hathaway MD PROCEDURE: XR HIP W PEL IF DONE RT 2V INDICATIONS: hip replacement bent to far and thinks she dislocated hip TECHNIQUE: AP pelvis with lateral view(s) of the right hip(s). COMPARISON: [facility], , XR HIP W PEL IF DONE RT 2V, 05/03/2024, 8:31. FINDINGS: Bones: Smear dislocation of the right femoroacetabular prosthesis.. No visible fractures. Hardware appears intact and in stable position. Pelvic ring remains intact. Soft tissues: The visualized bowel gas pattern is normal. Pelvic phleboliths and dystrophic left pelvic calcification are stable. IMPRESSION: Acute superior right hip dislocation. Dictated by: Rubi Shearer M.D. on 02/09/2025 at 22:19 Approved by: Rubi Shearer M.D. on 02/09/2025 at 22:21 Extremity x-ray #2: Radiologist's Impression: [address] [address] XRay Report Signed Patient: Anahi Vera MR#: [id number] : 1955 Acct:[id number] Age/Sex: 69 / F Date of Service: 02/10/25 Loc: ED Accession Number: [id number] Procedure: XR hip w pel RT 2V Ordering Provider: Soy Hathaway MD PhiROCEDURE: XR HIP W PEL IF DONE RT 2V INDICATIONS: post reduction TECHNIQUE: AP pelvis with lateral view(s) of the right hip(s). COMPARISON: Located within [facility], XR HIP W PEL RT 2V, 02/09/2025, 21:45. FINDINGS: Bones: Right hip prosthesis is in place. The joint is congruent. No unexpected fractures. Soft tissues: The visualized bowel gas pattern is normal. No new suspicious soft tissue calcifications. IMPRESSION: Successful right reduction. Dictated by: Rubi Shearer M.D. on 02/10/2025 at 2:03 Approved by: Rubi Shearer M.D. on 02/10/2025 at 2:04 p MDM Narrative Medical decision making narrative: 69-year-old female status post right hip arthroplasty 2022, recurrent dislocations, was in flexed position on sail boat when she felt she had right hip pain about 7:00 p.m. Presented multiple hours later. Tenderness right hip area with some shortening, suspected recurrent dislocation. X-ray requested. X-ray right hip showed anterior superior prosthetic dislocation, no obvious fracture. See radiology report. 2330, case discussed with orthopedic surgeon Dr. Boone, relayed that he had done the reduction last here April 2024, requests we try attempt here with IV propofol which was successful in the past. 0010, records review, prior 05/03/2024 procedure involved respiratory therapy along with anesthesia, patient was given ketamine 30mg and propofol 200mg, reference was made to prior events where patient had bradycardia. Class 3 airway risk. We will ask for anesthesia assistance for sedation if I we will attempt reduction. Case discussed with [facility], who is coming in for sedation. [facility] consulted, who administered IV ketamine and IV propofol, see their procedure note. See my procedure note for reduction, postreduction x-rays appear reduced prosthetic hip, no obvious fracture. Await Radiology over-read. Successful reduction, returned to preprocedure baseline mental status. Text communication with on-call orthopedics Dr. Boone, can bear weight, advises discharge in right knee immobilizer. Advised use of right knee immobilizer. She declined, stating that she had these at home. Was able to ambulate. Discharged home with . Follow up with her original treating orthopedic surgeon Dr. Norman advised. Discharge Plan Departure Patient Disposition: Home Clinical Impression: Dislocation of hip joint prosthesis, History of recurrent dislocation of hip joint prosthesis Activity Restrictions/Additional Instructions: Recurrent right prosthetic hip dislocation, again tonight, this might be your 4th or 5th right prosthetic hip dislocation, since original surgery by Dr. Norman 2022. IV sedation done by nurse medical records library professor, with closed reduction in the emergency department with pulling and rotational maneuvers. Post procedure x-ray confirmed reduction of the dislocation. On-call orthopedic surgery Dr. Boone advised use of knee immobilizer right side, prescribed, however you have knee immobilizers at home. Avoid flexion of the hip more than 90?, as this can increase your risk of again dislocating the prosthetic hip. Follow up with your original treating orthopedic surgeon Dr. Norman. Return earlier to this/nearest emergency department for any change worsening symptoms or any concerns prior Prescriptions: No Action losartan-hydrochlorothiazide 100-25 mg Tablet 1 tab PO DAILY metformin 500 mg Tablet Extended Release 24 Hr 500 mg PO DAILY meloxicam 7.5 mg Tablet 7.5 mg PO BID PRN (Reason: Pain) tizanidine 4 mg Capsule 4 mg PO BID PRN (Reason: Spasms) Referrals: Rigoberto Bird ARNP [Primary Care Provider, Nursing] Iraj Boone MD [Physician, Orthopedic Surgery] Ibis Norman MD [Physician, Orthopedic Surgery] Stand Alone Forms: Patient Portal/API
[2025-02-09 23:00] VITALS: BP 148/65; PULSE 69; O2SAT 94
[2025-02-09] MEDS: fentaNYL 100 MCG/2 ML INJ 25 MCG IV (23:21)
[2025-02-09 23:30] VITALS: BP 136/64; PULSE 66; O2SAT 97
[2025-02-10] VITALS (19 sets, daily range): BP systolic 123–170; BP diastolic 59–73; PULSE 53–68; RESP 11–25; TEMP 36.3–36.5; O2SAT 94–100
--- NOTE | 2025-02-10 01:03 | DI.RAD.S_ITS ---
PhiROCEDURE: XR HIP W PEL IF DONE RT 2V INDICATIONS: post reduction TECHNIQUE: AP pelvis with lateral view(s) of the right hip(s). COMPARISON: [facility], , XR HIP W PEL RT 2V, 02/09/2025, 21:45. FINDINGS: Bones: Right hip prosthesis is in place. The joint is congruent. No unexpected fractures. Soft tissues: The visualized bowel gas pattern is normal. No new suspicious soft tissue calcifications. IMPRESSION: Successful right reduction. Dictated by: Rubi Shearer M.D. on 02/10/2025 at 2:03 Approved by: Rubi Shearer M.D. on 02/10/2025 at 2:04 p
== END 2025-02-10 02:43 | disposition home or self-care (01) ==
PROVIDERS: Emergency Provider Emergency Medicine; PCP Registered Nurse
DX: T84.020A Dislocation of internal right hip prosthesis, initial encounter (principal); Z96.641 Presence of right artificial hip joint
CPT/HCPCS: 27265; 73502; 99152; 99284; J2704; J3010

== ENCOUNTER 2025-04-06 15:51 | Emergency (ER) | payer OTHER, SELFPAY ==
[2023-01-24 13:53] VITALS: BMI 37.8
[2025-04-06] VITALS (36 sets, daily range): BP systolic 97–159; BP diastolic 50–85; PULSE 49–76; RESP 11–20; TEMP 36.3–36.9; O2SAT 91–100; BMI 36.3
--- NOTE | 2025-04-06 16:27 | DI.RAD.S_ITS ---
PROCEDURE: XR HIP W PEL IF DONE RT 2V INDICATIONS: ? dislocation. h/o in the past. TECHNIQUE: AP pelvis with lateral view(s) of the right hip(s). COMPARISON: [facility], CR, XR PELVIS WITH LATERAL HIP RIGHT, 05/24/2024, 16:25. [facility], CR, XR HIP W PEL RT 2V, 02/09/2025, 21:45. [facility], CR, XR HIP W PEL RT 2V, 02/10/2025, 0:57. FINDINGS: Bones: The right prosthetic hip is dislocated, with the prosthetic humeral head seen superior to the prosthetic femoral cup. No associated fracture is seen. Soft tissues: The visualized bowel gas pattern is normal. Calcified uterine fibroids are seen. IMPRESSION: Right prosthetic hip dislocation. Dictated by: Chris Huerta M.D. on 04/06/2025 at 15:54 Approved by: Chris Huerta M.D. on 04/06/2025 at 15:55
[2025-04-06] MEDS: ONDANSETRON 4 MG/2 ML INJ IV (17:54)
[2025-04-06] MEDS: HYDROMORPHONE 1 MG INJ IV (17:57)
--- NOTE | 2025-04-06 18:12 | ED.LOWEXIN ---
HPI - Extremity Injury (Lower) General Chief Complaint: Extremity Injury, Lower Stated Complaint: dislocated hip Time Seen by Provider: 04/06/25 17:28 Source: patient Mode of arrival: Wheelchair History of Present Illness HPI Narrative: 70-year-old female with history of prior right hip replacement January 2023 Dr. Norman here at [facility], subsequent multiple prosthetic hip dislocations, April 2024 had reduction by orthopedic surgery Dr. Boone, last dislocation 02/09/2025 treated here in the emergency department and reduced with IV propofol. Today was vacuuming, did not recall significantly bending over, but felt pop and pain to right hip similar to prior dislocation symptoms. No fall. No lower extremity weakness. No other injuries. Related Data Home Medications ?Medication ?Instructions ?Recorded ?Confirmed losartan 100 1 tab PO DAILY 01/16/23 02/05/23 mg-hydrochlorothiazide 25 mg tablet meloxicam 7.5 mg tablet 7.5 mg PO BID PRN Pain 01/16/23 02/05/23 metformin 500 mg tablet,extended 500 mg PO DAILY 01/16/23 02/05/23 release 24 hr tizanidine 4 mg capsule 4 mg PO BID PRN Spasms 01/24/23 02/05/23 Allergies Allergy/AdvReac Type Severity Reaction Status Date / Time latex Allergy Severe Rash Verified 04/06/25 16:24 Penicillins Allergy Intermediate Rash Verified 04/06/25 16:24 Sulfa (Sulfonamide AdvReac I can't Verified 04/06/25 16:24 Antibiotics) remember, I was told not to take it Patient History Medical History Osteoarthritis Pre-diabetes Nasal fracture HTN (hypertension) Hearing loss, left 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 HEAD: Atraumatic. Normocephalic. EYES: Pupils equal round and reactive. Extraocular motions intact. No scleral icterus. No injection or drainage. ENT: Nose without bleeding, purulent drainage. Airway patent. NECK: Trachea midline. Non tender CARDIOVASCULAR: Regular rate and rhythm without murmurs, gallops, or rubs. RESPIRATORY: Clear to auscultation. Breath sounds equal bilaterally. No wheezes, rales, or rhonchi. GASTROINTESTINAL: Abdomen soft, non-tender, nondistended. EXTREMITIES: Some tenderness to the right hip, with shortening and slight external rotation, similar to prior presentations. With good DP pulse and cap refill. BACK: Nontender without deformity or crepitance. No flank tenderness. NEURO: AOx3. Motor functions grossly nonfocal. SKIN: No rash or erythema of visible areas Initial Vital Signs Initial Vital Signs: Vital Signs Temperature 97.4 F L 04/06/25 16:24 Pulse Rate 70 04/06/25 16:24 Respiratory Rate 14 04/06/25 16:24 Blood Pressure 142/65 H 04/06/25 16:24 Pulse Oximetry 99 04/06/25 16:24 Oxygen Delivery Method Room Air 04/06/25 16:24 Procedures Orthopedic Joint Reduction Joint #1: Time of procedure: 20:15 Joint Reduction Location: hip Analgesia: procedural sedation (Done by TIMBER HEWER, see separate note) Shoulder Technique Used (if applicable): other (Captain Kingsley technique distraction hip with counter-pressure with internal and external rotation, palpable reduction and limb lengthening.) Post-reduction neuro exam: intact Post Reduction X-Ray Obtained: Yes Post Reduction X-Ray Results: reduced Additional Comments: Good cap refill postreduction, x-ray anatomic prosthetic hip now back in position, no obvious fracture. See separate note for TIMBER HEWER sedation, given patient deep sedation with TIMBER HEWER assistance on prior reductions. Course Orders Ordered: Discontinued Medications Hydromorphone HCl (Hydromorphone 1 Mg Inj) 1 mg IV NOW ONE Stop: 04/06/25 17:29 Last Admin: 04/06/25 17:57 Dose: 1 mg Documented By: FAMILIA Ketamine HCl (Ketamine 500 Mg/5 Ml Inj) 50 mg IV NOW ONE Stop: 04/06/25 19:12 Ondansetron HCl (Ondansetron 4 Mg/2 Ml Inj) 4 mg IV NOW ONE Stop: 04/06/25 17:29 Last Admin: 04/06/25 17:54 Dose: 4 mg Documented By: FAMILIA Propofol (Propofol 200 Mg/20 Ml Vial) 200 mg IV NOW ONE Stop: 04/06/25 18:08 Vital Signs Vital signs: Vital Signs - 8 hr 04/06/25 16:24 04/06/25 17:17 04/06/25 17:18 Temperature 97.4 F L Pulse Rate 70 71 Respiratory Rate 14 Blood Pressure 142/65 H 139/76 Pulse Oximetry 99 97 Oxygen Delivery Method Room Air Oxygen Flow Rate 04/06/25 17:30 04/06/25 18:00 04/06/25 18:00 Temperature Pulse Rate 76 Respiratory Rate Blood Pressure 140/70 128/67 Pulse Oximetry 94 Oxygen Delivery Method Oxygen Flow Rate 04/06/25 18:30 04/06/25 18:30 04/06/25 19:00 Temperature Pulse Rate 59 L 64 Respiratory Rate Blood Pressure 116/57 L Pulse Oximetry 98 97 Oxygen Delivery Method Oxygen Flow Rate 04/06/25 19:00 04/06/25 19:30 04/06/25 19:30 Temperature Pulse Rate 73 Respiratory Rate Blood Pressure 136/64 103/51 L Pulse Oximetry 91 Oxygen Delivery Method Oxygen Flow Rate 04/06/25 19:35 04/06/25 19:35 04/06/25 19:35 Temperature 98.2 F Pulse Rate 53 L 62 Respiratory Rate 12 Blood Pressure 123/57 L 123/57 L Pulse Oximetry 100 92 Oxygen Delivery Method Non -Rebreather Oxygen Flow Rate 04/06/25 19:41 04/06/25 19:41 04/06/25 19:45 Temperature Pulse Rate 49 L 49 L Respiratory Rate 11 L 16 Blood Pressure 141/65 H Pulse Oximetry 100 100 Oxygen Delivery Method Oxygen Flow Rate 04/06/25 19:45 04/06/25 19:50 04/06/25 19:50 Temperature Pulse Rate 49 L Respiratory Rate 19 Blood Pressure 130/60 128/60 Pulse Oximetry 100 Oxygen Delivery Method Oxygen Flow Rate 04/06/25 19:55 04/06/25 19:55 04/06/25 19:56 Temperature Pulse Rate 59 L Respiratory Rate 15 Blood Pressure 144/61 H 154/85 H Pulse Oximetry 100 Oxygen Delivery Method Non -Rebreather Oxygen Flow Rate 10 04/06/25 19:56 04/06/25 19:58 04/06/25 19:58 Temperature Pulse Rate 62 73 Respiratory Rate 16 Blood Pressure 159/68 H Pulse Oximetry 100 95 Oxygen Delivery Method Non -Rebreather Oxygen Flow Rate 15 04/06/25 20:00 04/06/25 20:00 04/06/25 20:05 Temperature Pulse Rate 71 68 Respiratory Rate 13 13 Blood Pressure 155/64 H Pulse Oximetry 97 100 Oxygen Delivery Method Oxygen Flow Rate 04/06/25 20:05 04/06/25 20:10 04/06/25 20:10 Temperature 98.2 F Pulse Rate 64 Respiratory Rate 14 Blood Pressure 141/64 H 147/67 H 147/67 H Pulse Oximetry 98 Oxygen Delivery Method Oxygen Flow Rate 04/06/25 20:10 04/06/25 20:15 04/06/25 20:20 Temperature 98.1 F 97.7 F Pulse Rate 64 Respiratory Rate 12 Blood Pressure Pulse Oximetry 99 Oxygen Delivery Method Room Air Oxygen Flow Rate 04/06/25 20:25 Temperature 98.4 F Pulse Rate 64 Respiratory Rate 18 Blood Pressure 131/58 L Pulse Oximetry 96 Oxygen Delivery Method Oxygen Flow Rate 0 MDM - Extremity Injury (Lower) Lab Data Labs: Point of Care Testing Test Results Not applicable Imaging Data Extremity x-ray #1: Radiologist's Impression: [address] [address] XRay Report Signed Patient: Anahi Vera MR#: [id number] : 1955 Acct:[id number] Age/Sex: 70 / F Date of Service: 04/06/25 Loc: ED Accession Number: [id number] Procedure: XR hip w pel RT 2V Ordering Provider: Walter Engle MD PROCEDURE: XR HIP W PEL IF DONE RT 2V INDICATIONS: ? dislocation. h/o in the past. TECHNIQUE: AP pelvis with lateral view(s) of the right hip(s). [facility], [facility] 21[facility]45[facility], 02/10/2025, 0:57. FINDINGS: Bones: The right prosthetic hip is dislocated, with the prosthetic humeral head seen superior to the prosthetic femoral cup. No associated fracture is seen. Soft tissues: The visualized bowel gas pattern is normal. Calcified uterine fibroids are seen. IMPRESSION: Right prosthetic hip dislocation. Dictated by: Chris Huerta M.D. on 04/06/2025 at 15:54 Approved by: Chris Huerta M.D. on 04/06/2025 at 15:55 Extremity x-ray #2: Radiologist's Impression: [address] [address] XRay Report Signed Patient: Anahi Vera MR#: [id number] : 1955 Acct:[id number] Age/Sex: 70 / F Date of Service: 04/06/25 Loc: ED Accession Number: [id number] Procedure: XR hip w pel RT 2V Ordering Provider: Soy Hathaway MD PROCEDURE: XR HIP W PEL IF DONE RT 2V INDICATIONS: post-procedural TECHNIQUE: 2 views of the hip were acquired. COMPARISON: [facility], CR, XR HIP W PEL RT 2V, 04/06/2025, 16:31. [facility], CR, XR HIP W PEL RT 2V, 02/10/2025, 0:57. FINDINGS: Bones: Status post reduction of right hip arthroplasty. Components appear appropriately aligned. Soft tissues: No suspicious soft tissue calcifications or masses. IMPRESSION: Status post reduction of right hip arthroplasty. Components appear appropriately aligned. Dictated by: Rafyf Peguero M.D. on 04/06/2025 at 20:28 Approved by: Raffy Peguero M.D. on 04/06/2025 at 20:28 ECG Data Attestation: I personally reviewed and interpreted this ECG as follows: Interpretation: 1943, sinus bradycardia with rate of 52, no obvious ST segment elevation or depression changes. MI 180, QRS 94, QTC 453. [facility] Narrative Medical decision making narrative: 70-year-old female with recurrent right prosthetic hip dislocations after original procedure hip replacement January 2023, last treated closed with IV propofol here in the emergency department 02/09/2025, preceding hip dislocation treated by orthopedics on-call April 2024. Today with right hip dislocation from vacuuming, no fall, no other injuries. Screening x-ray shows right prosthetic hip dislocation without obvious fracture. Prosthetic humeral head is superior to the prosthetic femoral cuff. Last meal earlier this morning. IV propofol for attempted closed reduction. Keep NPO. On review of records 02/09/2025 ED reduction by me, anesthesia TIMBER HEWER assisted with sedation using ketamine and propofol and fentanyl, prior reduction April [address] Boone here in the department. We will attempt closed reduction with TIMBER HEWER assistance, they have been consulted. Procedure tolerated well, single attempt closed reduction with TIMBER HEWER assistance using ketamine and propofol. Recovered to preprocedure baseline. For sedation see separate TIMBER HEWER note. For reduction see separate note by me, kept in Sancho technique single attempt with good effect, lengthening. Postreduction x-ray anatomic without obvious fracture, right hip prosthetic joint dislocation reduction. Patient recovered to pre-procedure baseline, ambulatory in the ED, DC home with . Case discussed with orthopedics on-call Dr. Quevedo, who suggest follow up with Dr. Boone hip specialist in their group for possible prosthetic hip revision consultation. Discharge Plan Departure Patient Disposition: Home Clinical Impression: Dislocation of hip joint prosthesis Activity Restrictions/Additional Instructions: Recurrent right hip prosthesis dislocation, most recent dislocation February 2025 treated here in the emergency department with the assistance of nurse lead manufacturing engineering tech and fairly deep sedation, but without operative reduction. Today with popping out dislocation while vacuuming. X-ray confirmed dislocation, again sedation was achieved with the assistance of nurse lead manufacturing engineering tech for sedation, closed reduction on postprocedure x-ray without obvious fracture, prosthetic hardware in alignment in good condition. Case was discussed with on-call orthopedic surgery Dr. Quevedo who suggested consultation with area hip specialist Dr. Boone for possible revision surgery. His contact information provided. Call office later today. Return to this/nearest emergency department for any change worsening symptoms or any concerns prior. Prescriptions: No Action losartan-hydrochlorothiazide 100-25 mg Tablet 1 tab PO DAILY metformin 500 mg Tablet Extended Release 24 Hr 500 mg PO DAILY meloxicam 7.5 mg Tablet 7.5 mg PO BID PRN (Reason: Pain) tizanidine 4 mg Capsule 4 mg PO BID PRN (Reason: Spasms) Referrals: Rigoberto Bird ARNP [Primary Care Provider, Nursing] Magui Quevedo DO [Physician, Orthopedic Surgery] Iraj Boone MD [Physician, Orthopedic Surgery] Stand Alone Forms: Patient Portal/API
--- NOTE | 2025-04-06 19:38 | PC.NURSE ---
Patient heart rate 48-55. Patient oxygen saturation 88% on RA when laying flat. RT Kyra Kwon at bedside and places patient on 10L via nonrebreather. TRUCK SALES REPRESENTATIVE santana Groves present in room to assist with procedural sedation. Provider Lizzie made aware and verbal order for EKG stat.
--- NOTE | 2025-04-06 19:40 | EKG_ITS ---
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
--- NOTE | 2025-04-06 20:00 | DI.RAD.S_ITS ---
PROCEDURE: XR HIP W PEL IF DONE RT 2V INDICATIONS: post-procedural TECHNIQUE: 2 views of the hip were acquired. COMPARISON: [facility], CR, XR HIP W PEL RT 2V, 04/06/2025, 16:31. [facility], CR, XR HIP W PEL RT 2V, 02/10/2025, 0:57. FINDINGS: Bones: Status post reduction of right hip arthroplasty. Components appear appropriately aligned. Soft tissues: No suspicious soft tissue calcifications or masses. IMPRESSION: Status post reduction of right hip arthroplasty. Components appear appropriately aligned. Dictated by: Rafyf Peguero M.D. on 04/06/2025 at 20:28 Approved by: Raffy Peguero M.D. on 04/06/2025 at 20:28
--- NOTE | 2025-04-06 20:13 | PC.NURSE ---
2009: Patient taken off non-rebreather. Is on room air. Oxygen saturation 99% on RA and end tidal 43.
--- NOTE | 2025-04-06 21:01 | PC.NURSE ---
Please see AURY Wlater's documentation for medications given.
--- NOTE | 2025-04-06 21:43 | PC.NURSE ---
Patient ambulates to bathroom. Steady on feet.
== END 2025-04-06 21:51 | disposition home or self-care (01) ==
PROVIDERS: Emergency Provider Emergency Medicine; PCP Registered Nurse
DX: T84.020A Dislocation of internal right hip prosthesis, initial encounter (principal); Z96.641 Presence of right artificial hip joint
CPT/HCPCS: 27265; 36415; 73502; 93005; 96374; 96375; 99152; 99284; 99285; J1171; J2405

== ENCOUNTER → 2025-06-09 10:47 | Outpatient (CLI) | payer OTHER, SELFPAY ==
[2023-01-24 13:53] VITALS: BMI 37.8
[2025-06-09 11:48] LABS: Add Manual Diff / Slide Review NO; Hematocrit 42.4 % (36-46); Hemoglobin 14.2 g/dL (12.0-16.0); Lymphocytes Absolute Auto 2600 /uL (1100-4500); Mean Corpuscular HGB Conc 33.5 % (30-36); Mean Corpuscular Hemoglobin 31.7 PG (26-34); Mean Corpuscular Volume 94.6 fL (80-100); Platelet Count 227 X10^3/uL (150-400)
[2025-06-09 12:05] LABS: Albumin 4.3 g/dL (3.5-5.0); Blood Urea Nitrogen 15 mg/dL (7-17); Calcium 9.5 mg/dL (8.4-10.2); Carbon Dioxide 32 mmol/L (22-32); Chloride 101 mmol/L (98-107); Estimated Glomerular Filt Rate > 60 mL/min (>60); Glucose 94 mg/dL (70-99); HEMOLYSIS < 15 (0-50); Potassium 3.7 mmol/L (3.4-5.1); Sodium 140 mmol/L (137-145)
[2025-06-09 12:11] LABS: Hemoglobin A1C% w Est Avg Glu 6.0 % (4.0-6.0); Prealbumin 29.3 mg/dL (17.6-36.0); Vitamin D 25 Hydroxy (D3) 31.6 ng/mL (30.0-100.0)
== END ==
PROVIDERS: PCP Registered Nurse; Referring Provider Registered Nurse; Visit Provider Orthopaedic Surgery Adult Reconstructive Orthopaedic Surgery
DX: Z01.818 Encounter for other preprocedural examination (principal); T84.020A Dislocation of internal right hip prosthesis, initial encounter
CPT/HCPCS: 36415; 80048; 82040; 82306; 83036; 84134; 85025; 85651; 86140